=== PATIENT | male | born 1990 | race Caucasian/White ===

== ENCOUNTER 2016-07-31 02:30 | Inpatient (IN) | payer MEDICAID ==
[~2016-07-31] VITALS: Ht 175.3 cm; Wt 68.0 kg
[2016-07-31] MEDS ORDERED: STRIBILD TABLE1 EACH PO (02:36)
[2016-07-31] MEDS ORDERED: Metoclopramide 10mg/2ml Inj IVP ONE (02:45)
[2016-07-31] MEDS ORDERED: DiphenhydrAMINE 50mg/ml Inj IVP ONE (02:45)
[2016-07-31] MEDS ORDERED: Ketorolac 30mg Inj IV ONE (02:45)
[2016-07-31 02:54] LABS: BASOPHILS % (AUTO) 0.5 % (0.0-2.0); MEAN CORPUSCULAR HEMOGLOBIN 26.9 PG (27.0-31.0); MEAN CORPUSCULAR HGB CONC 34.2 G/DL (32.0-36.0); MEAN CORPUSCULAR VOLUME 79 FL (80-99); MEAN PLATELET VOLUME 7.5 FL (6.5-10.1); MONOCYTES % (AUTO) 6.8 % (1.0-10.0); NEUTROPHILS % (AUTO) 74.7 % (45.0-75.0); PLATELET COUNT 260 K/UL (150-450); RED BLOOD COUNT 4.52 M/UL (4.70-6.10); RED CELL DISTRIBUTION WIDTH 12.7 % (11.6-14.8); WHITE BLOOD COUNT 7.7 K/UL (4.8-10.8)
[2016-07-31] MEDS: cefTRIAXone 2 GM in NS 110 ML IV SCH ×2 (02:56→14:45)
[2016-07-31 03:00] VITALS: BP 112/60
[2016-07-31 03:10] LABS: INR 1.1 (0.9-1.1); PROTHROMBIN TIME 11.7 SEC (9.30-11.50)
[2016-07-31 03:11] LABS: ALANINE AMINOTRANSFERASE 16 U/L (3-41); ALBUMIN/GLOBULIN RATIO 0.7 (1.0-2.7); ANION GAP 14 (5-15); ASPARTATE AMINO TRANSFERASE 21 U/L (5-40); CALCIUM 8.6 mg/dL (8.6-10.2); CARBON DIOXIDE 25 mEQ/L (20-30); CHLORIDE 91 mEQ/L (98-107); CREATININE 0.8 mg/dL (0.7-1.2); GLOMERULAR FILTRATION RATE > 60 mL/min (>60); HEMOLYSIS 0; POTASSIUM 4.4 mEQ/L (3.4-4.9); SODIUM 130 mEQ/L (135-145); TOTAL PROTEIN 7.5 g/dL (6.6-8.7)
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
[2016-07-31 03:15] LABS: TROPONIN I < 0.30 ng/mL (<=0.30)
[2016-07-31 04:17] LABS: ERYTHROCYTE SEDIMENTATION RATE 80 MM/HR (0-15)
[2016-07-31 04:56] LABS: APPEARANCE,URINE CLEAR; KETONES,URINE NEGATIVE (NEGATIVE); LEUKOCYTE ESTERASE ,URINE NEGATIVE (NEGATIVE); NITRITE,URINE NEGATIVE (NEGATIVE); PH,URINE 8 (4.5-8.0); UROBILINOGEN,URINE NORMAL MG/DL (0.0-1.0)
[2016-07-31 04:59] LABS: PROTEIN,URINE NEGATIVE (NEGATIVE)
[2016-07-31] MEDS ORDERED: fentaNYL 100 mcg/2 mL IV ONE (05:45)
[2016-07-31 05:52] VITALS: BP 108/51
[2016-07-31 06:20] LABS: APPEARANCE,CSF CLEAR; COLOR,CSF COLORLESS
[2016-07-31 06:22] LABS: WHITE BLOOD CELL,CSF 40 /CU MM (0-5)
[2016-07-31 06:45] VITALS: BP 98/59
[2016-07-31 06:46] LABS: LYMPHOCYTES,CSF 65 %
[2016-07-31 06:52] LABS: GLUCOSE,CSF 42 mg/dL (50-80)
--- NOTE | 2016-07-31 09:11 | Diagnostic Imaging Report ---
Indication: Headache Technique: Contiguous 5 mm thick transaxial imaging of the head obtained in a Siemens Sensation [address] scanner. Soft tissue and bone windows generated. Total Dose length Product (DLP): [address] Dose Index Volume (CTDIvol): 70.38 mGy Comparison: none Findings: The size and configuration of the cortical sulci, basal cisterns, and ventricles are within normal limits for age. There is no mass effect, midline shift, or edema identified. There is no evidence of acute hemorrhage or abnormal intra-axial or extra-axial fluid collections. The bones and soft tissues are unremarkable. Impression: No mass effect, edema or acute bleed. The CT scanner at [facility] is accredited by the [employer] and the scans are performed using dose optimization techniques as appropriate to a performed exam including Automatic Exposure control.
[2016-07-31 12:15] VITALS: BP 104/71
[2016-07-31] MEDS ORDERED: Amikacin Rx to dose MISC PRN (18:15)
--- NOTE | 2016-07-31 18:22 | Consultation ---
History of Present Illness General Date patient seen: July 31, 2016 Chief Complaint: Headache Reason for Consultation: inpatient management Present Illness HPI 25 year old male with hx of HIV presents with headache for 3 days with fevers and chills. He's been vomiting and felt nauseated. He's also had some black stools. He had spinal tab, which showed wBC of 40 Allergies: Coded Allergies: Pecan (Verified Allergy, Unknown, 07/31/16) Paitent reports his throat closes up Uncoded Allergies: peanuts (Allergy, Unknown, 07/31/16) Paitent reports his throat closes up Medication History Scheduled Elvitegr/Cobicist/Emtric/Tenof (Stribild Tablet), 1 EACH PO DAILY, (Reported) Patient History Healthcare decision maker Resuscitation status Full Code Advanced Directive on File Review of Systems All Other Systems: negative except mentioned in HPI Physical Exam General Appearance: WD/WN Lines, tubes and drains: peripheral HEENT: normocephalic Neck: non-tender, normal alignment Respiratory/Chest: chest wall non-tender, lungs clear Breasts: no masses Cardiovascular/Chest: normal peripheral pulses Abdomen: normal bowel sounds, non tender Genitourinary/Rectal: normal genital exam Extremities: normal range of motion Skin Exam: normal pigmentation Last 24 Hour Vital Signs Date Time Temp Pulse Resp B/P Pulse Ox O2 Delivery O2 Flow Rate FiO2 07/31/16 12:15 98.2 86 22 104/71 97 Room Air 07/31/16 06:45 98.1 104 20 98/59 98 Room Air 07/31/16 06:00 98.4 82 18 108/51 100 Room Air 07/31/16 05:57 98.4 07/31/16 05:52 98.4 82 18 108/51 100 Room Air 07/31/16 03:00 100.8 90 18 112/60 100 Room Air 07/31/16 02:29 99.5 97 16 111/66 98 Room Air Intake and Output 07/30/16 07/31/16 19:00 07:00 # Voids 1 Laboratory Tests Test 07/31/16 02:40 07/31/16 04:50 07/31/16 05:30 07/31/16 15:30 White Blood Count 7.7 K/UL (4.8-10.8) Red Blood Count 4.52 M/UL (4.70-6.10) L Hemoglobin 12.2 G/DL (14.2-18.0) L Hematocrit 35.6 % (42.0-52.0) L Mean Corpuscular Volume 79 FL (80-99) L Mean Corpuscular Hemoglobin 26.9 PG (27.0-31.0) L Mean Corpuscular Hemoglobin Concent 34.2 G/DL (32.0-36.0) Red Cell Distribution Width 12.7 % (11.6-14.8) Platelet Count 260 K/UL (150-450) Mean Platelet Volume 7.5 FL (6.5-10.1) Neutrophils (%) (Auto) 74.7 % (45.0-75.0) Lymphocytes (%) (Auto) 18.0 % (20.0-45.0) L Monocytes (%) (Auto) 6.8 % (1.0-10.0) Eosinophils (%) (Auto) 0.0 % (0.0-3.0) Basophils (%) (Auto) 0.5 % (0.0-2.0) Erythrocyte Sedimentation Rate 80 MM/HR (0-15) H Prothrombin Time 11.7 SEC (9.30-11.50) H Prothromb Time International Ratio 1.1 (0.9-1.1) Activated Partial Thromboplast Time 30 SEC (23-33) Sodium Level 130 mEQ/L (135-145) L Potassium Level 4.4 mEQ/L (3.4-4.9) Chloride Level 91 mEQ/L (98-107) L Carbon Dioxide Level 25 mEQ/L (20-30) Anion Gap 14 (5-15) Blood Urea Nitrogen 11 mg/dL (7-23) Creatinine 0.8 mg/dL (0.7-1.2) Estimat Glomerular Filtration Rate > 60 mL/min (>60) Glucose Level 113 mg/dL (74-106) H Lactic Acid Level 1.30 mmol/L (0.66-2.22) Calcium Level 8.6 mg/dL (8.6-10.2) Total Bilirubin 0.3 mg/dL (0.0-1.2) Aspartate Amino Transf (AST/SGOT) 21 U/L (5-40) Alanine Aminotransferase (ALT/SGPT) 16 U/L (3-41) Alkaline Phosphatase 88 U/L (40-129) Total Creatine Kinase 37 U/L (38-174) L Troponin I < 0.30 ng/mL (<=0.30) Total Protein 7.5 g/dL (6.6-8.7) Albumin 3.1 g/dL (3.5-5.2) L Globulin 4.4 g/dL Albumin/Globulin Ratio 0.7 (1.0-2.7) L Urine Color Yellow Urine Appearance Clear Urine pH 8 (4.5-8.0) Urine Specific [place] 1.010 (1.005-1.035) Urine Protein Negative (NEGATIVE) Urine Glucose (UA) Negative (NEGATIVE) Urine Ketones Negative (NEGATIVE) Urine Occult Blood Negative (NEGATIVE) Urine Nitrite Negative (NEGATIVE) Urine Bilirubin Negative (NEGATIVE) Urine Urobilinogen Normal MG/DL (0.0-1.0) Urine Leukocyte Esterase Negative (NEGATIVE) Urine Opiates Screen Negative (NEGATIVE) Urine Barbiturates Screen Negative (NEGATIVE) Phencyclidine (PCP) Screen Negative (NEGATIVE) Urine Amphetamines Screen Positive (NEGATIVE) H Urine Benzodiazepines Screen Negative (NEGATIVE) Urine Cocaine Screen Negative (NEGATIVE) Urine Marijuana (THC) Screen Negative (NEGATIVE) CSF Appearance Clear CSF Color Colorless CSF WBC 40 /CU MM (0-5) *H CSF RBC 16 /CU MM CSF Neutrophils % 5 % CSF Lymphocytes % 65 % CSF Monocytes % 20 % CSF Crenated Cells 0 % CSF Glucose 42 mg/dL (50-80) L CSF Total Protein 90 mg/dL (15-45) H Cryptococcus Antigen Pending Microbiology Date/Time Source Procedure Growth Status 07/31/16 05:26 Cerebral Spinal Fluid Gram Stain - Final Resulted 07/31/16 05:26 Cerebral Spinal Fluid CSF Culture Pending Resulted 07/31/16 05:26 Cerebral Spinal Fluid Catrina Ink - Final Resulted Height (Feet): 5 Height (Inches): 9.00 Weight (Pounds): 150 Medications Current Medications Medications (Trade) Dose Ordered Sig/Genaro Route PRN Reason Start Time Stop Time Status Last Admin Dose Admin Acetaminophen (Tylenol) 650 mg Q4H PRN ORAL Mild Pain/Temp > 100.5 07/31/16 15:45 08/30/16 15:44 07/31/16 16:29 Amikacin Protocol 1 ea 1 ea DAILY PRN MISC Per rx protocol 07/31/16 18:15 08/30/16 18:14 UNV Heparin Sodium (Porcine) (Heparin 5000 units/ml) 5,000 units EVERY 12 HOURS SUBQ 07/31/16 21:00 08/30/16 20:59 Piperacillin Sod/ Tazobactam Sod/ Sodium Chloride (Zosyn/Sodium Chloride) 110 ml @ 27.5 mls/hr EVERY 6 HOURS IVPB 08/01/16 00:00 08/08/16 00:00 UNV Vancomycin HCl (Vanco rx to dose) 1 ea DAILY PRN MISC Per rx protocol 07/31/16 18:15 08/30/16 18:14 UNV Assessment/Plan Problem List: (1) Meningitis ICD Codes: G03.9 - Meningitis, unspecified SNOMED: 4735985 (2) HIV (human immunodeficiency virus infection) ICD Codes: Z21 - Asymptomatic human immunodeficiency virus [HIV] infection status SNOMED: 54299602 Assessment/Plan IV antibiotics check csf culture JADE FAROOQ July 31, 2016 18:22
[2016-07-31] MEDS: Morphine Sulfate 4mg/ml Inj IVP PRN (18:46)
--- NOTE | 2016-07-31 19:45 | History and Physical Report ---
DATE OF ADMISSION: 07/31/2016 TIME SEEN: 8 a.m. CONSULTANTS: 1. Dr. Goldsmith. 2. Manuelito Pastrana M.D. 3. Elaine Houston M.D. CHIEF COMPLAINT: Headache and fever. BRIEF HISTORY: This is a 25-year-old male, who comes in to [facility], diagnosed with the above, admitted to medical floor for further treatment. Currently sleeping in bed and refusing to answer questions. PAST MEDICAL HISTORY: HIV. PAST SURGICAL HISTORY: Unknown. MEDICATIONS: Includes ceftriaxone and IV fluids. ALLERGIES: Denies. SOCIAL HISTORY: The patient refuses to answer. REVIEW OF SYSTEMS: Unavailable. PHYSICAL EXAMINATION: GENERAL: Lethargic in bed, sleepy, and refuses to answer questions. VITAL SIGNS: Showed a temperature 98 degrees, pulse 104, respirations 20, and blood pressure 98/59. CARDIOVASCULAR: No murmur. LUNGS: Distant and clear. ABDOMEN: Bowel sounds positive. Nontender and nondistended. EXTREMITIES: No cyanosis, clubbing, or edema. NEUROLOGIC: The patient moves all extremities, but slightly weak. LABORATORY DATA: Hemoglobin 12.2. BMP is sodium 130, chloride 91, and glucose 113. Troponin less than 0.03. INR is 1.1. Urinalysis is negative. Urine tox is positive for amphetamines. ASSESSMENT: 1. Headache. 2. Fever. 3. Human immunodeficiency virus. 4. Anemia. PLAN: 1. Continue pre-medications and Tylenol p.r.n. 2. Antibiotics per Infectious Disease. 3. OT, PT, and dietary evaluation. 4. Discharge if cleared by team. 5. We will continue to follow this patient. Davis Pelletier D.O. DR: SINDY JOB#: [id number] CC:
[2016-07-31 20:00] VITALS: BP 97/62
[2016-07-31] MEDS ORDERED: Amikacin 1,000 MG in NS 110 ML IV SCH (20:00)
[2016-07-31] MEDS ORDERED: Vancomycin 1250mg/D5W 275ml IVPB ONE ×2 (21:00)
[2016-07-31] MEDS ORDERED: Vancomycin 1250mg/D5W 275ml IVPB SCH ×2 (21:00)
[2016-07-31] MEDS: Ampicillin 2 GM in NS 110 ML IVPB SCH (21:19)
[2016-07-31] MEDS: Heparin 5000 units/ml inj SUBQ SCH (21:20)
[2016-07-31] MEDS: cefTRIAXone 2 GM in D5W 110 ML IVPB SCH (23:50)
[2016-08-01] VITALS: BP 106/57
[2016-08-01] MEDS ORDERED: Piperacillin/Tazobactam 3.375 GM in NS 110 ML IVPB SCH ×2
[2016-08-01] MEDS: Ampicillin 2 GM in NS 110 ML IVPB SCH ×6 (00:32→20:26)
[2016-08-01 04:00] VITALS: BP 103/56
[2016-08-01] MEDS: Vancomycin 1gm/D5W 275ml IVPB SCH ×6 (04:44→21:00)
[2016-08-01 06:39] LABS: APPEARANCE,URINE CLEAR; KETONES,URINE NEGATIVE (NEGATIVE); LEUKOCYTE ESTERASE ,URINE NEGATIVE (NEGATIVE); NITRITE,URINE NEGATIVE (NEGATIVE); PH,URINE 7 (4.5-8.0); PROTEIN,URINE NEGATIVE (NEGATIVE); UROBILINOGEN,URINE NORMAL MG/DL (0.0-1.0)
[2016-08-01 06:54] LABS: BACTERIA,URINE OCCASIONAL /HPF; RBC,URINE 0-2 /HPF (0 - 0); SQUAMOUS EPITHELIAL CELL,UR OCCASIONAL /LPF (NONE/OCC); WBC,URINE 0-2 /HPF (0 - 0)
--- NOTE | 2016-08-01 07:43 | General Progress Note ---
Assessment/Plan Problem List: (1) Fever ICD Codes: R50.9 - Fever, unspecified SNOMED: 925772971 (2) Anemia ICD Codes: D64.9 - Anemia, unspecified SNOMED: 749458637 (3) HIV (human immunodeficiency virus infection) ICD Codes: Z21 - Asymptomatic human immunodeficiency virus [HIV] infection status SNOMED: 73616612 (4) Headache ICD Codes: R51 - Headache SNOMED: 81708230 Status: stable, progressing, tolerating diet Assessment/Plan ot pt diet abx cbc bmp am dc plan Subjective Constitutional: Reports: weakness Allergies: Coded Allergies: Pecan (Verified Allergy, Unknown, 07/31/16) Paitent reports his throat closes up Uncoded Allergies: peanuts (Allergy, Unknown, 07/31/16) Paitent reports his throat closes up All Systems: reviewed and negative except above Subjective sleepy calm Objective Last 24 Hour Vital Signs Date Time Temp Pulse Resp B/P Pulse Ox O2 Delivery O2 Flow Rate FiO2 08/01/16 05:58 97.7 08/01/16 04:00 98.2 91 20 103/56 96 Room Air 08/01/16 00:00 97.7 71 20 106/57 100 Room Air 07/31/16 20:00 100.0 86 17 97/62 96 Room Air 07/31/16 12:15 98.2 86 22 104/71 97 Room Air Intake and Output 07/31/16 08/01/16 19:00 07:00 Intake Total 720 ml 829.000 ml Output Total 1150 ml Balance 720 ml -321.000 ml Intake Oral 720 ml IV Total 829.000 ml Output Urine Total 1150 ml # Voids 6 # Bowel Movements 3 Laboratory Tests 07/31/16 15:30: Cryptococcus Antigen [Pending] 08/01/16 05:50: Urine Color Pale yellow, Urine Appearance Clear, Urine pH 7, Urine Specific [place] 1.005, Urine Protein Negative, Urine Glucose (UA) Negative, Urine Ketones Negative, Urine Occult Blood Negative, Urine Nitrite Negative, Urine Bilirubin Negative, Urine Urobilinogen Normal, Urine Leukocyte Esterase Negative , Urine RBC 0-2H, Urine WBC 0-2, Urine Squamous Epithelial Cells Occasional, Urine Bacteria Occasional Height (Feet): 5 Height (Inches): 9.00 Weight (Pounds): 150 General Appearance: lethargic EENT: normal ENT inspection Neck: normal alignment Cardiovascular: normal peripheral pulses, normal rate, regular rhythm Respiratory/Chest: chest wall non-tender, lungs clear, normal breath sounds Abdomen: normal bowel sounds, non tender, soft Extremities: normal inspection Edema: no edema noted Arm (L), no edema noted Arm (R), no edema noted Leg (L), no edema noted Leg (R), no edema noted Pedal (L), no edema noted Pedal (R), no edema noted Generalized Neurologic: responsive, motor weakness Skin: normal pigmentation, warm/dry BEAN REESE August 01, 2016 07:43
[2016-08-01 08:52] LABS: BASOPHILS % (AUTO) 1.1 % (0.0-2.0); EOSINOPHILS % (AUTO) 0.6 % (0.0-3.0); LYMPHOCYTES % (AUTO) 33.2 % (20.0-45.0); MEAN CORPUSCULAR HEMOGLOBIN 26.4 PG (27.0-31.0); MEAN CORPUSCULAR HGB CONC 33.1 G/DL (32.0-36.0); MEAN CORPUSCULAR VOLUME 80 FL (80-99); MEAN PLATELET VOLUME 7.9 FL (6.5-10.1); MONOCYTES % (AUTO) 13.1 % (1.0-10.0); PLATELET COUNT 221 K/UL (150-450); RED BLOOD COUNT 4.44 M/UL (4.70-6.10); RED CELL DISTRIBUTION WIDTH 12.8 % (11.6-14.8); WHITE BLOOD COUNT 3.7 K/UL (4.8-10.8)
[2016-08-01 09:04] LABS: CRP QUANT 3.4 mg/dL (< 0.5); MAGNESIUM 1.8 mg/dL (1.7-2.5); PHOSPHORUS 3.7 mg/dL (2.5-4.8)
[2016-08-01 09:08] LABS: ALANINE AMINOTRANSFERASE 14 U/L (3-41); ALBUMIN/GLOBULIN RATIO 0.7 (1.0-2.7); ANION GAP 13 (5-15); ASPARTATE AMINO TRANSFERASE 20 U/L (5-40); CALCIUM 8.9 mg/dL (8.6-10.2); CARBON DIOXIDE 28 mEQ/L (20-30); CHLORIDE 98 mEQ/L (98-107); CREATININE 0.8 mg/dL (0.7-1.2); GLOMERULAR FILTRATION RATE > 60 mL/min (>60); HEMOLYSIS 1; POTASSIUM 3.9 mEQ/L (3.4-4.9); SODIUM 139 mEQ/L (135-145); TOTAL PROTEIN 7.3 g/dL (6.6-8.7)
[2016-08-01] MEDS ORDERED: Amphotericin B Liposome 50mg inj IV SCH (09:30)
--- NOTE | 2016-08-01 09:56 | Infectious Diseases Prog Note ---
Assessment/Plan Problems: (1) Meningitis Assessment & Plan: with lymphocytosis on CSF, viral VS fungal VS TB, will order HSV on CSF, and coccidiomycosis titer , will add amphoterecine and acyclovir empirically for now, pending work, up. agree on vancomycin, ceftriaxon and ampicillin for bacterial coverage, pending CSF culture results. will stop amikacin (2) HIV (human immunodeficiency virus infection) Assessment & Plan: untreated, will order his viral load and CD4 counts for staging , patient needs counseling and referral to HIV provider to start ART as an outpatient , once discharged, all risk and benefits were explained to the patient and he understood. (3) Fever Assessment & Plan: due to the above, continue wide spectrum antimicrobials, pending further work up Subjective Allergies: Coded Allergies: Pecan (Verified Allergy, Unknown, 07/31/16) Triciat reports his throat closes up Uncoded Allergies: peanuts (Allergy, Unknown, 07/31/16) Racheltent reports his throat closes up Objective Vital Signs Last 24 Hour Vital Signs Date Time Temp Pulse Resp B/P Pulse Ox O2 Delivery O2 Flow Rate FiO2 08/01/16 05:58 97.7 08/01/16 04:00 98.2 91 20 103/56 96 Room Air 08/01/16 00:00 97.7 71 20 106/57 100 Room Air 07/31/16 20:00 100.0 86 17 97/62 96 Room Air 07/31/16 12:15 98.2 86 22 104/71 97 Room Air Height (Feet): 5 Height (Inches): 9.00 Weight (Pounds): 150 Microbiology Date/Time Source Procedure Growth Status 07/31/16 02:40 Blood Blood Culture - Preliminary NO GROWTH AFTER 24 HOURS Resulted 07/31/16 02:30 Blood Blood Culture - Preliminary NO GROWTH AFTER 24 HOURS Resulted 07/31/16 05:26 Cerebral Spinal Fluid Gram Stain - Final Resulted 07/31/16 05:26 Cerebral Spinal Fluid CSF Culture Pending Resulted 07/31/16 05:26 Cerebral Spinal Fluid Catrina Ink - Final Resulted Laboratory Tests Test 07/31/16 15:30 08/01/16 05:50 08/01/16 08:00 Cryptococcus Antigen Pending Urine Color Pale yellow Urine Appearance Clear Urine pH 7 (4.5-8.0) Urine Specific [place] 1.005 (1.005-1.035) Urine Protein Negative (NEGATIVE) Urine Glucose (UA) Negative (NEGATIVE) Urine Ketones Negative (NEGATIVE) Urine Occult Blood Negative (NEGATIVE) Urine Nitrite Negative (NEGATIVE) Urine Bilirubin Negative (NEGATIVE) Urine Urobilinogen Normal MG/DL (0.0-1.0) Urine Leukocyte Esterase Negative (NEGATIVE) Urine RBC 0-2 /HPF (0 - 0) H Urine WBC 0-2 /HPF (0 - 0) Urine Squamous Epithelial Cells Occasional /LPF Urine Bacteria Occasional /HPF (NONE) White Blood Count 3.7 K/UL (4.8-10.8) #L Red Blood Count 4.44 M/UL (4.70-6.10) L Hemoglobin 11.7 G/DL (14.2-18.0) L Hematocrit 35.4 % (42.0-52.0) L Mean Corpuscular Volume 80 FL (80-99) Mean Corpuscular Hemoglobin 26.4 PG (27.0-31.0) L Mean Corpuscular Hemoglobin Concent 33.1 G/DL (32.0-36.0) Red Cell Distribution Width 12.8 % (11.6-14.8) Platelet Count 221 K/UL (150-450) Mean Platelet Volume 7.9 FL (6.5-10.1) Neutrophils (%) (Auto) 52.0 % (45.0-75.0) Lymphocytes (%) (Auto) 33.2 % (20.0-45.0) Monocytes (%) (Auto) 13.1 % (1.0-10.0) H Eosinophils (%) (Auto) 0.6 % (0.0-3.0) Basophils (%) (Auto) 1.1 % (0.0-2.0) Erythrocyte Sedimentation Rate Pending Sodium Level 139 mEQ/L (135-145) Potassium Level 3.9 mEQ/L (3.4-4.9) Chloride Level 98 mEQ/L (98-107) Carbon Dioxide Level 28 mEQ/L (20-30) Anion Gap 13 (5-15) Blood Urea Nitrogen 6 mg/dL (7-23) L Creatinine 0.8 mg/dL (0.7-1.2) Estimat Glomerular Filtration Rate > 60 mL/min (>60) Glucose Level 85 mg/dL (74-106) Calcium Level 8.9 mg/dL (8.6-10.2) Phosphorus Level 3.7 mg/dL (2.5-4.8) Magnesium Level 1.8 mg/dL (1.7-2.5) Total Bilirubin < 0.2 mg/dL (0.0-1.2) Aspartate Amino Transf (AST/SGOT) 20 U/L (5-40) Alanine Aminotransferase (ALT/SGPT) 14 U/L (3-41) Alkaline Phosphatase 77 U/L (40-129) C-Reactive Protein, Quantitative 3.4 mg/dL (< 0.5) H Total Protein 7.3 g/dL (6.6-8.7) Albumin 3.1 g/dL (3.5-5.2) L Globulin 4.2 g/dL Albumin/Globulin Ratio 0.7 (1.0-2.7) L Random Amikacin Level < 0.8 ug/mL Current Medications Medications (Trade) Dose Ordered Sig/Genaro Route PRN Reason Start Time Stop Time Status Last Admin Dose Admin Acetaminophen (Tylenol) 650 mg Q4H PRN ORAL Mild Pain/Temp > 100.5 07/31/16 15:45 08/30/16 15:44 08/01/16 04:59 Acyclovir/Sodium Chloride (Zovirax/Sodium Chloride) 110 ml @ 110 mls/hr Q8HR IVPB 08/01/16 09:45 08/31/16 09:44 UNV Amphotericin B Liposome 350 mg 350 mg Q24H IV 08/01/16 09:30 08/06/16 09:29 UNV Ampicillin/Sodium Chloride (Ampicillin/ Sodium Chloride) 110 ml @ 220 mls/hr EVERY 4 HOURS IVPB 07/31/16 21:00 08/07/16 20:59 08/01/16 04:06 Ceftriaxone Sodium 2 gm/ Dextrose 110 ml @ 220 mls/hr Q12HR@1030,2230 IVPB 07/31/16 22:30 08/07/16 22:29 07/31/16 23:50 Heparin Sodium (Porcine) (Heparin 5000 units/ml) 5,000 units EVERY 12 HOURS SUBQ 07/31/16 21:00 08/30/16 20:59 07/31/16 21:20 Morphine Sulfate (Morphine Sulfate) 4 mg Q4H PRN IVP Severe Pain (Pain Scale 7-10) 07/31/16 18:30 08/07/16 18:29 07/31/16 18:46 Vancomycin HCl 1 ea 1 ea DAILY PRN MISC Per rx protocol 07/31/16 18:15 08/30/16 18:14 Vancomycin HCl 1 gm/Dextrose 275 ml @ 183.708 mls/hr Q8HR@0500,1300,2100 IVPB 08/01/16 05:00 08/06/16 04:59 08/01/16 04:44 Humberto Montemayor M.D. August 01, 2016 09:56
[2016-08-01] MEDS: Heparin 5000 units/ml inj SUBQ SCH ×2 (09:57→20:37)
[2016-08-01] MEDS: cefTRIAXone 2 GM in D5W 110 ML IVPB SCH ×2 (11:08→23:59)
[2016-08-01] MEDS: Acyclovir 700 MG in NS 110 ML IV SCH ×2 (12:01→18:48)
[2016-08-01 12:32] VITALS: BP 99/54
[2016-08-01] MEDS: AMPHOTERICIN B LIPOSOME IV SCH (13:58)
[2016-08-01] MEDS: D5W IV SCH (13:58)
[2016-08-01] MEDS: Morphine Sulfate 4mg/ml Inj IVP PRN ×2 (14:09→20:28)
[2016-08-01 16:26] VITALS: BP 100/52
[2016-08-01] MEDS ORDERED: NS 275ml ONE (17:34)
[2016-08-01] MEDS ORDERED: Tubing IV Secondary IV ONE (17:34)
--- NOTE | 2016-08-01 18:30 | Consultation ---
DATE OF CONSULTATION: 08/01/2016 INFECTIOUS DISEASE CONSULTATION CONSULTING PHYSICIAN: Humberto Montemayor M.D. REFERRING PHYSICIAN: Davis Pelletier D.O. REASON FOR CONSULTATION: Meningitis and HIV, recommendation for antimicrobial treatment and HIV care. HISTORY OF PRESENT ILLNESS: The patient is a 25-year-old male with history of HIV, was diagnosed three years ago, who has been on Stribild for his HIV treatment and run out of it for the last three months after he moved from [place] to [facility]. The patient presented with sudden onset of severe headache, blurry vision, neck stiffness, and vomiting, which started Monday morning after he woke up. He denied any recent travel or sick contact. The patient was having fever and chills. He vomited multiple times. There was no blood in his vomits. The patient denied any recent sexual activity. He denied any drug abuse or sharing needles. In the emergency room, he was found to be febrile with temperature of 99.5 and white count of 7.7. He underwent lumbar puncture with CSF fluid WBC was 40, mainly lymphocyte dominant. The patient was started on vancomycin, ceftriaxone, ampicillin, and amikacin by the admitting physician, and I was consulted for antibiotics treatment and further management. REVIEW OF SYSTEMS: Fourteen-point systems reviewed were all negative apart from the one I mentioned above in my H and P. PAST MEDICAL HISTORY: Significant for HIV. PAST SURGICAL HISTORY: Negative. SOCIAL HISTORY: The patient denied any tobacco or alcohol abuse, but he tested positive for amphetamine. FAMILY HISTORY: Not contributory. ALLERGIES: He has no known drug allergy. MEDICATIONS: The patient was started on vancomycin, ceftriaxone, amikacin, and ampicillin by the admitting physician for the rest of his medications. Please refer to MAR. LABORATORY DATA: Labs showed white count of 3.7, hemoglobin of 11.7, and platelet count of 221,000. Sedimentation rate of 86. BUN of 6 and creatinine of 0.8. AST of 20, ALT of 14, and alkaline phosphatase of 77. Urinalysis was negative for infection. Toxicology was positive for amphetamine. CSF analysis was clear, colorless, WBC of 40, red blood cells of 16, neutrophils of 5, lymphocytes of 65, monocytes of 20, and glucose of 42 with total protein of 90. VDRL and herpes on the CSF pending. Microbiology, blood culture x2 negative for 24 hours. CSF Catrina ink staining negative. IMAGING: Head CT scan showed no mass effect, edema, or acute bleed. PHYSICAL EXAMINATION: VITAL SIGNS: Temperature 97.9, pulse 68, respirations 22, blood pressure 99/54, and pulse oximetry 97% on room air. GENERAL: Young male, lying in bed, awake, alert, has photophobia for light, seems comfortable, not in distress. HEENT: Normocephalic and atraumatic. Unable to assess pupillary reaction since he has photophobia and refused to open his eyes. NECK: Stiff. No lymphadenopathy. Normal oral mucosa. No thrush or ulceration. CARDIOVASCULAR: Tachycardic. S1 and S2 normal. No gallop. No murmur. LUNGS: Clear bilaterally. No wheezing. No rhonchi. Normal breathing effort. ABDOMEN: Soft, nontender, and nondistended. Positive bowel sounds. No hepatosplenomegaly. No ascites. EXTREMITIES: No edema or cyanosis. SKIN: No rash. No ulceration. ASSESSMENT AND RECOMMENDATION: 1. Acute meningitis with lymphocyte dominance on cerebrospinal fluid analysis. Differential includes viral versus fungal versus TB. We will order herpes PCR on his CSF fluid and cocci with crypto antigen in the CSF and VDRL to rule out syphilis. We will add amphotericin for fungal coverage and acyclovir for viral coverage. Continue vancomycin, ceftriaxone, and ampicillin for bacterial coverage pending CSF culture result. We will stop amikacin at this point. Avoid nephrotoxicity. 2. Human immunodeficiency virus. The patient has been on Stribild, but off medication for three months with poor compliance. We will order his viral load and CD4 count for staging. The patient received counseling. He needs referral to HIV provider to establish his care once discharged from the hospital. We will continue his Stribild here while hospitalized, and the patient was advised to follow up with HIV provider once get discharged from the hospital. 3. Fever due to the above. Continue wide-spectrum antibiotic treatment pending further workup. 4. Drug abuse. The patient was counseled. We will screen for hepatitis. Humberto Montemayor M.D. DR: CARLY JOB#: [id number] CC:
[2016-08-01 20:01] VITALS: BP 100/60
[2016-08-01] MEDS: Vancomycin 1250mg in D5W 275ml IVPB SCH (22:07)
--- NOTE | 2016-08-01 22:40 | Pulmonology Progress Note ---
Assessment/Plan Problems: (1) Meningitis (2) HIV (human immunodeficiency virus infection) Assessment/Plan no cultures yet continue antibitics serology pending Subjective ROS Limited/Unobtainable: No Constitutional: Reports: no symptoms HEENT: Repors: no symptoms Respiratory: Reports: no symptoms Allergies: Coded Allergies: Pecan (Verified Allergy, Unknown, 07/31/16) Paitent reports his throat closes up Uncoded Allergies: peanuts (Allergy, Unknown, 07/31/16) Paitent reports his throat closes up Objective Last 24 Hour Vital Signs Date Time Temp Pulse Resp B/P Pulse Ox O2 Delivery O2 Flow Rate FiO2 08/01/16 20:01 99.5 80 17 100/60 98 Room Air 08/01/16 16:26 97.5 73 21 100/52 97 Room Air 08/01/16 12:32 97.9 60 22 99/54 97 Room Air 08/01/16 05:58 97.7 08/01/16 04:00 98.2 91 20 103/56 96 Room Air 08/01/16 00:00 97.7 71 20 106/57 100 Room Air Intake and Output 07/31/16 08/01/16 19:00 07:00 Intake Total 720 ml 829.000 ml Output Total 1150 ml Balance 720 ml -321.000 ml Intake Oral 720 ml IV Total 829.000 ml Output Urine Total 1150 ml # Voids 6 # Bowel Movements 3 General Appearance: WD/WN HEENT: normocephalic, atraumatic Respiratory/Chest: chest wall non-tender, lungs clear Cardiovascular: normal peripheral pulses, regular rhythm Abdomen: normal bowel sounds, soft, non tender Genitourinary: normal external genitalia Extremities: no clubbing Skin: no rash Microbiology Date/Time Source Procedure Growth Status 07/31/16 02:40 Blood Blood Culture - Preliminary NO GROWTH AFTER 24 HOURS Resulted 07/31/16 02:30 Blood Blood Culture - Preliminary NO GROWTH AFTER 24 HOURS Resulted 07/31/16 05:26 Cerebral Spinal Fluid Gram Stain - Final Resulted 07/31/16 05:26 Cerebral Spinal Fluid CSF Culture - Preliminary NO GROWTH AFTER 24 HOURS Resulted 07/31/16 05:26 Cerebral Spinal Fluid Catrina Ink - Final Resulted Laboratory Tests 08/01/16 05:50: Urine Color Pale yellow, Urine Appearance Clear, Urine pH 7, Urine Specific [place] 1.005, Urine Protein Negative, Urine Glucose (UA) Negative, Urine Ketones Negative, Urine Occult Blood Negative, Urine Nitrite Negative, Urine Bilirubin Negative, Urine Urobilinogen Normal, Urine Leukocyte Esterase Negative , Urine RBC 0-2H, Urine WBC 0-2, Urine Squamous Epithelial Cells Occasional, Urine Bacteria Occasional 08/01/16 08:00: White Blood Count 3.7#L, Red Blood Count 4.44L, Hemoglobin 11.7L, Hematocrit 35.4L, Mean Corpuscular Volume 80, Mean Corpuscular Hemoglobin 26.4L, Mean Corpuscular Hemoglobin Concent 33.1, Red Cell Distribution Width 12.8, Platelet Count 221, Mean Platelet Volume 7.9, Neutrophils (%) (Auto) 52.0, Lymphocytes (% ) (Auto) 33.2, Monocytes (%) (Auto) 13.1H, Eosinophils (%) (Auto) 0.6, Basophils (%) (Auto) 1.1, Erythrocyte Sedimentation Rate 86H, CSF VDRL [Pending] , CSF Herpes Simplex II DNA (PCR) [Pending], Sodium Level 139, Potassium Level 3.9, Chloride Level 98, Carbon Dioxide Level 28, Anion Gap 13, Blood Urea Nitrogen 6L, Creatinine 0.8, Estimat Glomerular Filtration Rate > 60, Glucose Level 85, Calcium Level 8.9, Phosphorus Level 3.7, Magnesium Level 1.8, Total Bilirubin < 0.2, Aspartate Amino Transf (AST/SGOT) 20, Alanine Aminotransferase (ALT/SGPT) 14, Alkaline Phosphatase 77, C-Reactive Protein, Quantitative 3.4H, Total Protein 7.3, Albumin 3.1L, Globulin 4.2, Albumin/Globulin Ratio 0.7L, Random Amikacin Level < 0.8, Herpes Simplex Virus I IgM Ab (IFA) [Pending], Herpes Simplex Virus II IgM Ab (IFA [Pending], Herpes Simplex Virus I DNA (PCR) [Pending] 08/01/16 18:00: Hepatitis A IgM Antibody [Pending], Hepatitis B Surface Antigen [Pending], Hepatitis B Core IgM Antibody [Pending], Hepatitis C Antibody [Pending] 08/01/16 20:20: Vancomycin Level Trough 11.7 Current Medications Medications (Trade) Dose Ordered Sig/Genaro Route PRN Reason Start Time Stop Time Status Last Admin Dose Admin Acetaminophen (Tylenol) 650 mg Q4H PRN ORAL Mild Pain/Temp > 100.5 07/31/16 15:45 08/30/16 15:44 08/01/16 04:59 Acyclovir 700 mg/ Sodium Chloride 110 ml @ 110 mls/hr Q8H IV 08/01/16 11:30 08/31/16 11:29 08/01/16 18:48 Amphotericin B Liposome 350 mg/ Dextrose 275 ml @ 137.5 mls/ hr Q24H IV 08/01/16 12:00 08/06/16 11:59 08/01/16 13:58 Ampicillin/Sodium Chloride (Ampicillin/ Sodium Chloride) 110 ml @ 220 mls/hr EVERY 4 HOURS IVPB 07/31/16 21:00 08/07/16 20:59 08/01/16 20:26 Ceftriaxone Sodium 2 gm/ Dextrose 110 ml @ 220 mls/hr Q12HR@1030,2230 IVPB 07/31/16 22:30 08/07/16 22:29 08/01/16 11:08 Heparin Sodium (Porcine) (Heparin 5000 units/ml) 5,000 units EVERY 12 HOURS SUBQ 07/31/16 21:00 08/30/16 20:59 07/31/16 21:20 Morphine Sulfate 4 mg 4 mg Q4H PRN IVP Severe Pain (Pain Scale 7-10) 07/31/16 18:30 08/07/16 18:29 08/01/16 20:28 Vancomycin HCl 1 ea 1 ea DAILY PRN MISC Per rx protocol 07/31/16 18:15 08/30/16 18:14 Vancomycin HCl/ Dextrose (Vancomycin/D5W) 275 ml @ 183.708 mls/hr Q8HR@0500,1700,2100 IVPB 08/01/16 22:00 08/06/16 21:59 08/01/16 22:07 JADE FAROOQ August 01, 2016 22:40
[2016-08-02] VITALS: BP 90/42
[2016-08-02] MEDS: Ampicillin 2 GM in NS 110 ML IVPB SCH ×6 (01:02→20:44)
[2016-08-02] MEDS: Acyclovir 700 MG in NS 110 ML IV SCH ×3 (03:13→18:51)
[2016-08-02 04:00] VITALS: BP 91/57
[2016-08-02] MEDS: Vancomycin 1250mg in D5W 275ml IVPB SCH (05:27)
--- NOTE | 2016-08-02 07:54 | Cardiology Report ---
APPROVED REPORT EKG Measurement Heart [id number] MI [id number] Normal sinus rhythm Normal ECG
[2016-08-02 08:00] VITALS: BP 110/58
[2016-08-02] MEDS ORDERED: DiphenhydrAMINE 50mg/ml Inj IVP PRN (08:30)
[2016-08-02] MEDS: Morphine Sulfate 4mg/ml Inj IVP PRN ×3 (08:50→20:49)
[2016-08-02] MEDS: Heparin 5000 units/ml inj SUBQ SCH ×2 (08:51→20:54)
--- NOTE | 2016-08-02 09:18 | Diagnostic Imaging Report ---
Indication: Chest Pain Comparison: None A single view chest radiograph was obtained. Findings: Cardiomediastinal appearance is within normal limits for age. Pulmonary vascularity is appropriate. The diaphragmatic contour is smooth and costophrenic angles are sharp. No pleural effusions are identified. The bones are unremarkable. Impression: No acute findings
[2016-08-02] MEDS: cefTRIAXone 2 GM in D5W 110 ML IVPB SCH ×2 (10:28→22:20)
[2016-08-02 10:45] LABS: BASOPHILS % (AUTO) 0.9 % (0.0-2.0); EOSINOPHILS % (AUTO) 1.4 % (0.0-3.0); LYMPHOCYTES % (AUTO) 30.9 % (20.0-45.0); MEAN CORPUSCULAR HEMOGLOBIN 25.7 PG (27.0-31.0); MEAN CORPUSCULAR HGB CONC 32.4 G/DL (32.0-36.0); MEAN CORPUSCULAR VOLUME 79 FL (80-99); MEAN PLATELET VOLUME 7.7 FL (6.5-10.1); MONOCYTES % (AUTO) 15.7 % (1.0-10.0); NEUTROPHILS % (AUTO) 51.1 % (45.0-75.0); PLATELET COUNT 255 K/UL (150-450); RED BLOOD COUNT 4.52 M/UL (4.70-6.10); RED CELL DISTRIBUTION WIDTH 12.6 % (11.6-14.8); WHITE BLOOD COUNT 3.9 K/UL (4.8-10.8)
[2016-08-02 11:21] LABS: ANION GAP 9 (5-15); CARBON DIOXIDE 31 mEQ/L (20-30); CHLORIDE 98 mEQ/L (98-107); CREATININE 0.7 mg/dL (0.7-1.2); GLOMERULAR FILTRATION RATE > 60 mL/min (>60); HEMOLYSIS 2; POTASSIUM 3.9 mEQ/L (3.4-4.9); SODIUM 138 mEQ/L (135-145)
--- NOTE | 2016-08-02 11:47 | Diagnostic Imaging Report ---
Indication: DYSPNEA Technique: One view of the chest Comparison: 07/31/2016 Findings: Less optimal inspiration currently. The lungs and pleural spaces are clear. Heart size is normal Impression: No acute process
[2016-08-02 12:00] VITALS: BP 109/45
--- NOTE | 2016-08-02 12:57 | General Progress Note ---
Assessment/Plan Problem List: (1) Fever ICD Codes: R50.9 - Fever, unspecified SNOMED: 673810744 (2) Anemia ICD Codes: D64.9 - Anemia, unspecified SNOMED: 553514867 (3) HIV (human immunodeficiency virus infection) ICD Codes: Z21 - Asymptomatic human immunodeficiency virus [HIV] infection status SNOMED: 26026560 (4) Headache ICD Codes: R51 - Headache SNOMED: 70834223 Status: stable, progressing, tolerating diet Assessment/Plan ot pt diet abx cbc bmp am dc plan Subjective Constitutional: Reports: weakness Allergies: Coded Allergies: Pecan (Verified Allergy, Unknown, 07/31/16) Paitent reports his throat closes up Uncoded Allergies: peanuts (Allergy, Unknown, 07/31/16) Paitent reports his throat closes up All Systems: reviewed and negative except above Subjective sleepy calm Objective Last 24 Hour Vital Signs Date Time Temp Pulse Resp B/P Pulse Ox O2 Delivery O2 Flow Rate FiO2 08/02/16 12:00 97.7 62 20 109/45 98 Room Air 08/02/16 08:00 98.2 70 20 110/58 97 Room Air 08/02/16 08:00 98.2 79 16 110/58 97 Room Air 08/02/16 04:00 98.1 65 18 91/57 96 Room Air 08/02/16 00:00 98.1 67 16 90/42 97 Room Air 08/01/16 20:01 99.5 80 17 100/60 98 Room Air 08/01/16 16:26 97.5 73 21 100/52 97 Room Air Intake and Output 08/01/16 08/02/16 19:00 07:00 Intake Total 2430.000 ml 1008.708 ml Output Total 1500 ml Balance 930.000 ml 1008.708 ml Intake Oral 1440 ml IV Total 990.000 ml 1008.708 ml Output Urine Total 1500 ml # Voids 5 3 Laboratory Tests 08/01/16 18:00: Hepatitis A IgM Antibody [Pending], Hepatitis B Surface Antigen [Pending], Hepatitis B Core IgM Antibody [Pending], Hepatitis C Antibody [Pending] 08/01/16 20:20: Vancomycin Level Trough 11.7 08/02/16 05:00: CSF Coccidioides Antibody [Pending] 08/02/16 10:25: White Blood Count 3.9L, Red Blood Count 4.52L, Hemoglobin 11.6L, Hematocrit 35.8L, Mean Corpuscular Volume 79L, Mean Corpuscular Hemoglobin 25.7L, Mean Corpuscular Hemoglobin Concent 32.4, Red Cell Distribution Width 12.6, Platelet Count 255, Mean Platelet Volume 7.7, Neutrophils (%) (Auto) 51.1, Lymphocytes (% ) (Auto) 30.9, Monocytes (%) (Auto) 15.7H, Eosinophils (%) (Auto) 1.4, Basophils (%) (Auto) 0.9, Lymphocytes [Pending], Sodium Level 138, Potassium Level 3.9, Chloride Level 98, Carbon Dioxide Level 31H, Anion Gap 9, Blood Urea Nitrogen 8, Creatinine 0.7, Estimat Glomerular Filtration Rate > 60, Glucose Level 101, Calcium Level 9.0, Percent CD3 Cells [Pending], Absolute CD3 Count [ Pending], Percent CD4 Cells [Pending], Absolute CD4 Count [Pending], T- Lymphocyte CD4/CD8 Ratio [Pending], Percent CD8 Cells [Pending], Absolute CD8 Count [Pending], Rapid Plasma Reagin [Pending], Blastomyces Ab Immunodiffusion [ Pending], Coccidioides Antibody (Comp Fix) [Pending], Histoplasma Mycelial Antibody [Pending], Histoplasma Antibody w Mycelial Ag [Pending], Histoplasma Antibody with Yeast Ag [Pending], HIV-1 RNA (PCR) log10 Value [Pending], HIV-1 RNA Ultraquantitative (PCR) [Pending], Toxoplasma IgG Antibody [Pending], Toxoplasma IgM Antibody [Pending] 08/02/16 11:00: TB Test (T-Spot) [Pending], TB Test Nil Control (T-Spot) [Pending], TB Test Panel A (T-Spot) [Pending], TB Test Panel B (T-Spot) [Pending], TB Test Positive Control (T-Spot) [Pending] Height (Feet): 5 Height (Inches): 9.00 Weight (Pounds): 150 General Appearance: lethargic EENT: normal ENT inspection Neck: normal alignment Cardiovascular: normal peripheral pulses, normal rate, regular rhythm Respiratory/Chest: chest wall non-tender, lungs clear, normal breath sounds Abdomen: normal bowel sounds, non tender, soft Extremities: normal range of motion, non-tender Edema: no edema noted Arm (L), no edema noted Arm (R), no edema noted Leg (L), no edema noted Leg (R), no edema noted Pedal (L), no edema noted Pedal (R), no edema noted Generalized Neurologic: motor weakness Skin: normal pigmentation, warm/dry BEAN REESE August 02, 2016 12:57
[2016-08-02] MEDS: D5W IV SCH (13:17)
[2016-08-02] MEDS: AMPHOTERICIN B LIPOSOME IV SCH (13:17)
--- NOTE | 2016-08-02 15:32 | Pulmonology Progress Note ---
Assessment/Plan Problems: (1) Meningitis (2) HIV (human immunodeficiency virus infection) Assessment/Plan improving csf cultures negative continue antibitics serology pending Subjective ROS Limited/Unobtainable: No Constitutional: Reports: no symptoms HEENT: Repors: no symptoms Respiratory: Reports: no symptoms Cardiovascular: Reports: no symptoms Allergies: Coded Allergies: Pecan (Verified Allergy, Unknown, 07/31/16) Paitent reports his throat closes up Uncoded Allergies: peanuts (Allergy, Unknown, 07/31/16) Paitent reports his throat closes up Objective Last 24 Hour Vital Signs Date Time Temp Pulse Resp B/P Pulse Ox O2 Delivery O2 Flow Rate FiO2 08/02/16 12:00 97.7 62 20 109/45 98 Room Air 08/02/16 08:00 98.2 70 20 110/58 97 Room Air 08/02/16 08:00 98.2 79 16 110/58 97 Room Air 08/02/16 04:00 98.1 65 18 91/57 96 Room Air 08/02/16 00:00 98.1 67 16 90/42 97 Room Air 08/01/16 20:01 99.5 80 17 100/60 98 Room Air 08/01/16 16:26 97.5 73 21 100/52 97 Room Air Intake and Output 08/01/16 08/02/16 19:00 07:00 Intake Total 2430.000 ml 1008.708 ml Output Total 1500 ml Balance 930.000 ml 1008.708 ml Intake Oral 1440 ml IV Total 990.000 ml 1008.708 ml Output Urine Total 1500 ml # Voids 5 3 General Appearance: WD/WN HEENT: normocephalic, atraumatic Respiratory/Chest: chest wall non-tender, lungs clear Cardiovascular: normal peripheral pulses, normal rate Genitourinary: normal external genitalia Skin: no rash Microbiology Date/Time Source Procedure Growth Status 07/31/16 02:40 Blood Blood Culture - Preliminary NO GROWTH AFTER 48 HOURS Resulted 07/31/16 02:30 Blood Blood Culture - Preliminary NO GROWTH AFTER 48 HOURS Resulted 07/31/16 05:26 Cerebral Spinal Fluid Gram Stain - Final Resulted 07/31/16 05:26 Cerebral Spinal Fluid CSF Culture - Preliminary NO GROWTH AFTER 48 HOURS Resulted 07/31/16 05:26 Cerebral Spinal Fluid Catrina Ink - Final Resulted 08/01/16 05:00 Sputum Gram Stain - Final Resulted 08/01/16 05:00 Sputum Sputum Culture Pending Resulted 08/01/16 05:00 Indwelling Cath Urine Culture - Preliminary NO GROWTH Resulted 07/31/16 05:34 Rectum VRE Culture - Final NO VANCOMYCIN RESISTANT ENTEROCOCCUS ... Complete Laboratory Tests 08/01/16 18:00: Hepatitis A IgM Antibody [Pending], Hepatitis B Surface Antigen [Pending], Hepatitis B Core IgM Antibody [Pending], Hepatitis C Antibody [Pending] 08/01/16 20:20: Vancomycin Level Trough 11.7 08/02/16 05:00: CSF Coccidioides Antibody [Pending] 08/02/16 10:25: White Blood Count 3.9L, Red Blood Count 4.52L, Hemoglobin 11.6L, Hematocrit 35.8L, Mean Corpuscular Volume 79L, Mean Corpuscular Hemoglobin 25.7L, Mean Corpuscular Hemoglobin Concent 32.4, Red Cell Distribution Width 12.6, Platelet Count 255, Mean Platelet Volume 7.7, Neutrophils (%) (Auto) 51.1, Lymphocytes (% ) (Auto) 30.9, Monocytes (%) (Auto) 15.7H, Eosinophils (%) (Auto) 1.4, Basophils (%) (Auto) 0.9, Lymphocytes [Pending], Sodium Level 138, Potassium Level 3.9, Chloride Level 98, Carbon Dioxide Level 31H, Anion Gap 9, Blood Urea Nitrogen 8, Creatinine 0.7, Estimat Glomerular Filtration Rate > 60, Glucose Level 101, Calcium Level 9.0, Percent CD3 Cells [Pending], Absolute CD3 Count [ Pending], Percent CD4 Cells [Pending], Absolute CD4 Count [Pending], T- Lymphocyte CD4/CD8 Ratio [Pending], Percent CD8 Cells [Pending], Absolute CD8 Count [Pending], Rapid Plasma Reagin [Pending], Blastomyces Ab Immunodiffusion [ Pending], Coccidioides Antibody (Comp Fix) [Pending], Histoplasma Mycelial Antibody [Pending], Histoplasma Antibody w Mycelial Ag [Pending], Histoplasma Antibody with Yeast Ag [Pending], HIV-1 RNA (PCR) log10 Value [Pending], HIV-1 RNA Ultraquantitative (PCR) [Pending], Toxoplasma IgG Antibody [Pending], Toxoplasma IgM Antibody [Pending] 08/02/16 11:00: TB Test (T-Spot) [Pending], TB Test Nil Control (T-Spot) [Pending], TB Test Panel A (T-Spot) [Pending], TB Test Panel B (T-Spot) [Pending], TB Test Positive Control (T-Spot) [Pending] Current Medications Medications (Trade) Dose Ordered Sig/Genaro Route PRN Reason Start Time Stop Time Status Last Admin Dose Admin Acetaminophen (Tylenol) 650 mg Q4H PRN ORAL Mild Pain/Temp > 100.5 07/31/16 15:45 08/30/16 15:44 08/01/16 04:59 Acyclovir 700 mg/ Sodium Chloride 110 ml @ 110 mls/hr Q8H IV 08/01/16 11:30 08/31/16 11:29 08/02/16 11:35 Amphotericin B Liposome 350 mg/ Dextrose 275 ml @ 137.5 mls/ hr Q24H IV 08/01/16 12:00 08/06/16 11:59 08/02/16 13:17 Ampicillin/Sodium Chloride (Ampicillin/ Sodium Chloride) 110 ml @ 220 mls/hr EVERY 4 HOURS IVPB 07/31/16 21:00 08/07/16 20:59 08/02/16 13:35 Ceftriaxone Sodium 2 gm/ Dextrose 110 ml @ 220 mls/hr Q12HR@1030,2230 IVPB 07/31/16 22:30 08/07/16 22:29 08/02/16 10:28 Diphenhydramine HCl (Benadryl) 25 mg Q6H PRN IVP Itching 08/02/16 08:30 09/01/16 08:29 Heparin Sodium (Porcine) (Heparin 5000 units/ml) 5,000 units EVERY 12 HOURS SUBQ 07/31/16 21:00 08/30/16 20:59 08/02/16 08:51 Morphine Sulfate 4 mg 4 mg Q4H PRN IVP Severe Pain (Pain Scale 7-10) 07/31/16 18:30 08/07/16 18:29 08/02/16 13:36 Patient Own Medication (Patient's Own Med) 1 ea DAILY ORAL 08/02/16 16:00 09/01/16 15:59 Vancomycin HCl 1 ea 1 ea DAILY PRN MISC Per rx protocol 07/31/16 18:15 08/30/16 18:14 Vancomycin HCl/ Dextrose (Vancomycin/D5W) 275 ml @ 183.708 mls/hr Q8HR@0500,1700,2100 IVPB 08/01/16 22:00 08/06/16 21:59 08/02/16 05:27 JADE FAROOQ August 02, 2016 15:32
[2016-08-02 16:00] VITALS: BP 97/50
[2016-08-02] MEDS ORDERED: Miralax 17gm pkt ORAL PRN (16:45)
[2016-08-02] MEDS ORDERED: NS 275ml ONE (17:13)
--- NOTE | 2016-08-02 18:21 | Infectious Diseases Prog Note ---
Assessment/Plan Problems: (1) Meningitis Assessment & Plan: with lymphocytosis on CSF, viral VS fungal VS TB, HSV on CSF, and coccidiomycosis titer are pending , continue amphotericin and acyclovir empirically for now, pending work up. continue vancomycin, ceftriaxon and ampicillin for bacterial coverage, pending CSF culture results. (2) HIV (human immunodeficiency virus infection) Assessment & Plan: was on stribild before but stopped taking it for the last three months. will restart it , await viral load and CD4 counts for staging , patient needs counseling and referral to HIV provider to start ART as an outpatient , once discharged, all risk and benefits were explained to the patient and he understood. screening for syphilis, toxo, and TB in process (3) Fever Assessment & Plan: improved, due to the above, continue wide spectrum antimicrobials, pending further work up Subjective Constitutional: Reports: anorexia, fatigue Respiratory: Reports: no symptoms Cardiovascular: Reports: no symptoms Gastrointestinal/Abdominal: Reports: nausea Genitourinary: Reports: no symptoms Neurologic: Reports: headache Skin: Reports: no symptoms Musculoskeletal: Reports: stiffness Allergies: Coded Allergies: Pecan (Verified Allergy, Unknown, 07/31/16) Paitent reports his throat closes up VANCOMYCIN (Verified Adverse Reaction, Intermediate, Hives, 08/02/16) patient developed hives, they went away after few hours after medication was stopped Uncoded Allergies: peanuts (Allergy, Unknown, 07/31/16) Paitent reports his throat closes up Objective Vital Signs Last 24 Hour Vital Signs Date Time Temp Pulse Resp B/P Pulse Ox O2 Delivery O2 Flow Rate FiO2 08/02/16 16:00 97.7 62 20 97/50 100 Room Air 08/02/16 12:00 97.7 62 20 109/45 98 Room Air 08/02/16 08:00 98.2 70 20 110/58 97 Room Air 08/02/16 08:00 98.2 79 16 110/58 97 Room Air 08/02/16 04:00 98.1 65 18 91/57 96 Room Air 08/02/16 00:00 98.1 67 16 90/42 97 Room Air 08/01/16 20:01 99.5 80 17 100/60 98 Room Air Height (Feet): 5 Height (Inches): 9.00 Weight (Pounds): 150 General Appearance: WD/WN, no acute distress HEENT: normocephalic, atraumatic, anicteric, mucous membranes moist, pharynx normal, no JVD Respiratory/Chest: chest wall non-tender, lungs clear, normal breath sounds, no respiratory distress, no accessory muscle use Cardiovascular: normal peripheral pulses, normal rate, regular rhythm, no gallop/murmur Abdomen: normal bowel sounds, soft, non tender, no organomegaly, non distended , no mass, no scars Extremities: no cyanosis, no clubbing Skin: no rash, no lesions, no ulcers Microbiology Date/Time Source Procedure Growth Status 07/31/16 02:40 Blood Blood Culture - Preliminary NO GROWTH AFTER 48 HOURS Resulted 07/31/16 02:30 Blood Blood Culture - Preliminary NO GROWTH AFTER 48 HOURS Resulted 07/31/16 05:26 Cerebral Spinal Fluid Gram Stain - Final Resulted 07/31/16 05:26 Cerebral Spinal Fluid CSF Culture - Preliminary NO GROWTH AFTER 48 HOURS Resulted 07/31/16 05:26 Cerebral Spinal Fluid Catrina Ink - Final Resulted 08/01/16 05:00 Sputum Gram Stain - Final Resulted 08/01/16 05:00 Sputum Sputum Culture Pending Resulted 08/01/16 05:00 Indwelling Cath Urine Culture - Preliminary NO GROWTH Resulted 07/31/16 05:34 Rectum VRE Culture - Final NO VANCOMYCIN RESISTANT ENTEROCOCCUS ... Complete Laboratory Tests Test 08/01/16 20:20 08/02/16 05:00 08/02/16 10:25 08/02/16 11:00 Vancomycin Level Trough 11.7 ug/mL (5.0-12.0) CSF Coccidioides Antibody Pending White Blood Count 3.9 K/UL (4.8-10.8) L Red Blood Count 4.52 M/UL (4.70-6.10) L Hemoglobin 11.6 G/DL (14.2-18.0) L Hematocrit 35.8 % (42.0-52.0) L Mean Corpuscular Volume 79 FL (80-99) L Mean Corpuscular Hemoglobin 25.7 PG (27.0-31.0) L Mean Corpuscular Hemoglobin Concent 32.4 G/DL (32.0-36.0) Red Cell Distribution Width 12.6 % (11.6-14.8) Platelet Count 255 K/UL (150-450) Mean Platelet Volume 7.7 FL (6.5-10.1) Neutrophils (%) (Auto) 51.1 % (45.0-75.0) Lymphocytes (%) (Auto) 30.9 % (20.0-45.0) Monocytes (%) (Auto) 15.7 % (1.0-10.0) H Eosinophils (%) (Auto) 1.4 % (0.0-3.0) Basophils (%) (Auto) 0.9 % (0.0-2.0) Lymphocytes Pending Sodium Level 138 mEQ/L (135-145) Potassium Level 3.9 mEQ/L (3.4-4.9) Chloride Level 98 mEQ/L (98-107) Carbon Dioxide Level 31 mEQ/L (20-30) H Anion Gap 9 (5-15) Blood Urea Nitrogen 8 mg/dL (7-23) Creatinine 0.7 mg/dL (0.7-1.2) Estimat Glomerular Filtration Rate > 60 mL/min (>60) Glucose Level 101 mg/dL (74-106) Calcium Level 9.0 mg/dL (8.6-10.2) Percent CD3 Cells Pending Absolute CD3 Count Pending Percent CD4 Cells Pending Absolute CD4 Count Pending T-Lymphocyte CD4/CD8 Ratio Pending Percent CD8 Cells Pending Absolute CD8 Count Pending Rapid Plasma Reagin Pending Blastomyces Ab Immunodiffusion Pending Coccidioides Antibody (Comp Fix) Pending Histoplasma Mycelial Antibody Pending Histoplasma Antibody w Mycelial Ag Pending Histoplasma Antibody with Yeast Ag Pending HIV-1 RNA (PCR) log10 Value Pending HIV-1 RNA Ultraquantitative (PCR) Pending Toxoplasma IgG Antibody Pending Toxoplasma IgM Antibody Pending TB Test (T-Spot) Pending TB Test Nil Control (T-Spot) Pending TB Test Panel A (T-Spot) Pending TB Test Panel B (T-Spot) Pending TB Test Positive Control (T-Spot) Pending Current Medications Medications (Trade) Dose Ordered Sig/Genaro Route PRN Reason Start Time Stop Time Status Last Admin Dose Admin Acetaminophen 650 mg 650 mg Q4H PRN ORAL Mild Pain/Temp > 100.5 07/31/16 15:45 08/30/16 15:44 08/01/16 04:59 Acyclovir 700 mg/ Sodium Chloride 110 ml @ 110 mls/hr Q8H IV 08/01/16 11:30 08/31/16 11:29 08/02/16 11:35 Amphotericin B Liposome/Dextrose (Ambisome/D5W) 275 ml @ 137.5 mls/ hr Q24H IV 08/01/16 12:00 08/06/16 11:59 08/02/16 13:17 Ampicillin/Sodium Chloride (Ampicillin/ Sodium Chloride) 110 ml @ 220 mls/hr EVERY 4 HOURS IVPB 07/31/16 21:00 08/07/16 20:59 08/02/16 16:27 Ceftriaxone Sodium 2 gm/ Dextrose 110 ml @ 220 mls/hr Q12HR@1030,2230 IVPB 07/31/16 22:30 08/07/16 22:29 08/02/16 10:28 Diphenhydramine HCl (Benadryl) 25 mg Q6H PRN IVP Itching 08/02/16 08:30 09/01/16 08:29 Heparin Sodium (Porcine) (Heparin 5000 units/ml) 5,000 units EVERY 12 HOURS SUBQ 07/31/16 21:00 08/30/16 20:59 08/02/16 08:51 Morphine Sulfate 4 mg 4 mg Q4H PRN IVP Severe Pain (Pain Scale 7-10) 07/31/16 18:30 08/07/16 18:29 08/02/16 13:36 Patient Own Medication (Patient's Own Med) 1 ea DAILY ORAL 08/02/16 16:00 09/01/16 15:59 08/02/16 16:27 Polyethylene Glycol (Miralax) 17 gm DAILYPRN PRN ORAL Constipation 08/02/16 16:45 09/01/16 16:44 Humberto Montemayor M.D. August 02, 2016 18:21
[2016-08-02 20:00] VITALS: BP 103/52
[2016-08-03] VITALS: BP 97/53
[2016-08-03] MEDS: Ampicillin 2 GM in NS 110 ML IVPB SCH ×6 (00:47→21:37)
[2016-08-03] MEDS: Acyclovir 700 MG in NS 110 ML IV SCH ×3 (03:17→19:42)
[2016-08-03 08:00] VITALS: BP 102/50
[2016-08-03] MEDS: Heparin 5000 units/ml inj SUBQ SCH ×2 (08:39→21:00)
[2016-08-03] MEDS: cefTRIAXone 2 GM in D5W 110 ML IVPB SCH (10:18)
[2016-08-03 10:32] LABS: BASOPHILS % (AUTO) 0.8 % (0.0-2.0); EOSINOPHILS % (AUTO) 1.3 % (0.0-3.0); LYMPHOCYTES % (AUTO) 34.9 % (20.0-45.0); MEAN CORPUSCULAR HEMOGLOBIN 26.4 PG (27.0-31.0); MEAN CORPUSCULAR HGB CONC 33.1 G/DL (32.0-36.0); MEAN CORPUSCULAR VOLUME 80 FL (80-99); MEAN PLATELET VOLUME 7.7 FL (6.5-10.1); MONOCYTES % (AUTO) 14.3 % (1.0-10.0); NEUTROPHILS % (AUTO) 48.7 % (45.0-75.0); PLATELET COUNT 261 K/UL (150-450); RED BLOOD COUNT 4.51 M/UL (4.70-6.10); RED CELL DISTRIBUTION WIDTH 12.3 % (11.6-14.8); WHITE BLOOD COUNT 3.6 K/UL (4.8-10.8)
[2016-08-03 10:59] LABS: ANION GAP 10 (5-15); CALCIUM 8.5 mg/dL (8.6-10.2); CARBON DIOXIDE 29 mEQ/L (20-30); CHLORIDE 103 mEQ/L (98-107); CREATININE 0.8 mg/dL (0.7-1.2); GLOMERULAR FILTRATION RATE > 60 mL/min (>60); HEMOLYSIS 1; POTASSIUM 4.2 mEQ/L (3.4-4.9); SODIUM 142 mEQ/L (135-145)
[2016-08-03 11:24] LABS: CSF COMMENT PATHOLOGIST COMMENT
[2016-08-03 12:00] VITALS: BP 132/74
[2016-08-03] MEDS: D5W IV SCH (12:45)
[2016-08-03] MEDS: AMPHOTERICIN B LIPOSOME IV SCH (12:45)
--- NOTE | 2016-08-03 13:59 | General Progress Note ---
Assessment/Plan Problem List: (1) Fever ICD Codes: R50.9 - Fever, unspecified SNOMED: 088165154 (2) Anemia ICD Codes: D64.9 - Anemia, unspecified SNOMED: 416538916 (3) HIV (human immunodeficiency virus infection) ICD Codes: Z21 - Asymptomatic human immunodeficiency virus [HIV] infection status SNOMED: 81282385 (4) Headache ICD Codes: R51 - Headache SNOMED: 68378407 Status: stable, progressing, tolerating diet Assessment/Plan ot pt diet abx cbc bmp am dc plan Subjective Constitutional: Reports: weakness Allergies: Coded Allergies: Pecan (Verified Allergy, Unknown, 07/31/16) Paitent reports his throat closes up VANCOMYCIN (Verified Adverse Reaction, Intermediate, Hives, 08/02/16) patient developed hives, they went away after few hours after medication was stopped Uncoded Allergies: peanuts (Allergy, Unknown, 07/31/16) Triciat reports his throat closes up All Systems: reviewed and negative except above Subjective sleepy calm Objective Last 24 Hour Vital Signs Date Time Temp Pulse Resp B/P Pulse Ox O2 Delivery O2 Flow Rate FiO2 08/03/16 12:00 98.1 68 18 132/74 97 Room Air 08/03/16 08:00 97.5 64 18 102/50 97 Room Air 08/03/16 04:00 97.5 61 18 98 Room Air 08/03/16 00:00 96.6 62 18 97/53 98 Room Air 08/02/16 20:00 97.2 67 18 103/52 94 Room Air 08/02/16 16:00 97.7 62 20 97/50 100 Room Air Intake and Output 08/02/16 08/03/16 19:00 07:00 Intake Total 1125.0 ml 660 ml Balance 1125.0 ml 660 ml Intake Oral 300 ml IV Total 825.0 ml 660 ml # Voids 4 2 Laboratory Tests 08/03/16 09:50: White Blood Count 3.6L, Red Blood Count 4.51L, Hemoglobin 11.9L, Hematocrit 36.0L, Mean Corpuscular Volume 80, Mean Corpuscular Hemoglobin 26.4L, Mean Corpuscular Hemoglobin Concent 33.1, Red Cell Distribution Width 12.3, Platelet Count 261, Mean Platelet Volume 7.7, Neutrophils (%) (Auto) 48.7, Lymphocytes (% ) (Auto) 34.9, Monocytes (%) (Auto) 14.3H, Eosinophils (%) (Auto) 1.3, Basophils (%) (Auto) 0.8, Sodium Level 142, Potassium Level 4.2, Chloride Level 103, Carbon Dioxide Level 29, Anion Gap 10, Blood Urea Nitrogen 10, Creatinine 0.8, Estimat Glomerular Filtration Rate > 60, Glucose Level 105, Calcium Level 8.5L Height (Feet): 5 Height (Inches): 9.00 Weight (Pounds): 150 General Appearance: lethargic EENT: normal ENT inspection Neck: normal alignment Cardiovascular: normal peripheral pulses, normal rate, regular rhythm Respiratory/Chest: chest wall non-tender, lungs clear, normal breath sounds Abdomen: normal bowel sounds, non tender, soft Extremities: normal inspection Edema: no edema noted Arm (L), no edema noted Arm (R), no edema noted Leg (L), no edema noted Leg (R), no edema noted Pedal (L), no edema noted Pedal (R), no edema noted Generalized Neurologic: motor weakness Skin: normal pigmentation, warm/dry BEAN REESE August 03, 2016 13:59
--- NOTE | 2016-08-03 15:17 | Pulmonology Progress Note ---
Assessment/Plan Problems: (1) Meningitis (2) HIV (human immunodeficiency virus infection) Assessment/Plan improving csf cultures negative continue antibitics as per Id recommendations serology pending Subjective ROS Limited/Unobtainable: No Constitutional: Reports: no symptoms HEENT: Repors: no symptoms Allergies: Coded Allergies: Pecan (Verified Allergy, Unknown, 07/31/16) Taylor reports his throat closes up VANCOMYCIN (Verified Adverse Reaction, Intermediate, Hives, 08/02/16) patient developed hives, they went away after few hours after medication was stopped Uncoded Allergies: peanuts (Allergy, Unknown, 07/31/16) Taylor reports his throat closes up Objective Last 24 Hour Vital Signs Date Time Temp Pulse Resp B/P Pulse Ox O2 Delivery O2 Flow Rate FiO2 08/03/16 12:00 98.1 68 18 132/74 97 Room Air 08/03/16 08:00 97.5 64 18 102/50 97 Room Air 08/03/16 04:00 97.5 61 18 98 Room Air 08/03/16 00:00 96.6 62 18 97/53 98 Room Air 08/02/16 20:00 97.2 67 18 103/52 94 Room Air 08/02/16 16:00 97.7 62 20 97/50 100 Room Air Intake and Output 08/02/16 08/03/16 19:00 07:00 Intake Total 1125.0 ml 660 ml Balance 1125.0 ml 660 ml Intake Oral 300 ml IV Total 825.0 ml 660 ml # Voids 4 2 General Appearance: WD/WN HEENT: normocephalic Respiratory/Chest: chest wall non-tender, lungs clear Cardiovascular: normal peripheral pulses, normal rate Abdomen: normal bowel sounds, soft, non tender Genitourinary: normal external genitalia 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 Lymphatic: no neck adenopathy Microbiology Date/Time Source Procedure Growth Status 08/01/16 05:00 Sputum Gram Stain - Final Complete 08/01/16 05:00 Sputum Sputum Culture - Final NORMAL UPPER RESPIRATORY XAVIER PRESENT Complete 08/01/16 05:00 Indwelling Cath Urine Culture - Preliminary NO GROWTH AFTER 24 HOURS Resulted Laboratory Tests 08/03/16 09:50: White Blood Count 3.6L, Red Blood Count 4.51L, Hemoglobin 11.9L, Hematocrit 36.0L, Mean Corpuscular Volume 80, Mean Corpuscular Hemoglobin 26.4L, Mean Corpuscular Hemoglobin Concent 33.1, Red Cell Distribution Width 12.3, Platelet Count 261, Mean Platelet Volume 7.7, Neutrophils (%) (Auto) 48.7, Lymphocytes (% ) (Auto) 34.9, Monocytes (%) (Auto) 14.3H, Eosinophils (%) (Auto) 1.3, Basophils (%) (Auto) 0.8, Sodium Level 142, Potassium Level 4.2, Chloride Level 103, Carbon Dioxide Level 29, Anion Gap 10, Blood Urea Nitrogen 10, Creatinine 0.8, Estimat Glomerular Filtration Rate > 60, Glucose Level 105, Calcium Level 8.5L Current Medications Medications (Trade) Dose Ordered Sig/Genaro Route PRN Reason Start Time Stop Time Status Last Admin Dose Admin Acetaminophen 650 mg 650 mg Q4H PRN ORAL Mild Pain/Temp > 100.5 07/31/16 15:45 08/30/16 15:44 08/01/16 04:59 Acyclovir 700 mg/ Sodium Chloride 110 ml @ 110 mls/hr Q8H IV 08/01/16 11:30 08/31/16 11:29 08/03/16 11:43 Amphotericin B Liposome/Dextrose (Ambisome/D5W) 275 ml @ 137.5 mls/ hr Q24H IV 08/01/16 12:00 08/06/16 11:59 08/03/16 12:45 Ampicillin/Sodium Chloride (Ampicillin/ Sodium Chloride) 110 ml @ 220 mls/hr EVERY 4 HOURS IVPB 07/31/16 21:00 08/07/16 20:59 08/03/16 13:30 Ceftriaxone Sodium 2 gm/ Dextrose 110 ml @ 220 mls/hr Q12HR@1030,2230 IVPB 07/31/16 22:30 08/07/16 22:29 08/03/16 10:18 Diphenhydramine HCl (Benadryl) 25 mg Q6H PRN IVP Itching 08/02/16 08:30 09/01/16 08:29 Heparin Sodium (Porcine) (Heparin 5000 units/ml) 5,000 units EVERY 12 HOURS SUBQ 07/31/16 21:00 08/30/16 20:59 08/03/16 08:39 Morphine Sulfate 4 mg 4 mg Q4H PRN IVP Severe Pain (Pain Scale 7-10) 07/31/16 18:30 08/07/16 18:29 08/02/16 20:49 Ondansetron HCl (Zofran) 4 mg Q4H PRN IVP Nausea & Vomiting 08/03/16 07:00 09/02/16 06:59 08/03/16 08:31 Patient Own Medication (Patient's Own Med) 1 ea DAILY ORAL 08/02/16 16:00 09/01/16 15:59 08/02/16 16:27 Polyethylene Glycol (Miralax) 17 gm DAILYPRN PRN ORAL Constipation 08/02/16 16:45 09/01/16 16:44 JADE FAROOQ August 03, 2016 15:17
--- NOTE | 2016-08-03 15:29 | Infectious Diseases Prog Note ---
Assessment/Plan Problems: (1) Meningitis Assessment & Plan: with lymphocytosis on CSF, viral VS fungal VS TB, HSV on CSF, and coccidiomycosis titer are pending , continue amphotericin and acyclovir empirically for now, pending work up. will stop vancomycin, and ceftriaxon , for now since CSF culture and gram stain is negative . will continue ampicillin for bacterial coverage, pending CSF culture results. (2) HIV (human immunodeficiency virus infection) Assessment & Plan: was on stribild before but stopped taking it for the last three months. he refused to restart it here thinking it will exacerbate his infection. await viral load and CD4 counts for staging , patient needs counseling and referral to HIV provider to start ART as an outpatient , once discharged, all risk and benefits were explained to the patient and he understood. screening for syphilis, toxo, and TB in process (3) Fever Assessment & Plan: improved, due to the above, continue wide spectrum antimicrobials, pending further work up Subjective Constitutional: Reports: anorexia, fatigue HEENT: Reports: no symptoms Respiratory: Reports: no symptoms Breasts: Reports: no symptoms Cardiovascular: Reports: no symptoms Gastrointestinal/Abdominal: Reports: no symptoms Genitourinary: Reports: no symptoms Neurologic: Reports: headache Psychiatric: Reports: anxiety Skin: Reports: no symptoms Endocrine: Reports: no symptoms Allergies: Coded Allergies: Pecan (Verified Allergy, Unknown, 07/31/16) Taylor reports his throat closes up VANCOMYCIN (Verified Adverse Reaction, Intermediate, Hives, 08/02/16) patient developed hives, they went away after few hours after medication was stopped Uncoded Allergies: peanuts (Allergy, Unknown, 07/31/16) Taylor reports his throat closes up Objective Vital Signs Last 24 Hour Vital Signs Date Time Temp Pulse Resp B/P Pulse Ox O2 Delivery O2 Flow Rate FiO2 08/03/16 12:00 98.1 68 18 132/74 97 Room Air 08/03/16 08:00 97.5 64 18 102/50 97 Room Air 08/03/16 04:00 97.5 61 18 98 Room Air 08/03/16 00:00 96.6 62 18 97/53 98 Room Air 08/02/16 20:00 97.2 67 18 103/52 94 Room Air 08/02/16 16:00 97.7 62 20 97/50 100 Room Air Height (Feet): 5 Height (Inches): 9.00 Weight (Pounds): 150 General Appearance: WD/WN, no acute distress HEENT: normocephalic, atraumatic, anicteric, mucous membranes moist Respiratory/Chest: chest wall non-tender, lungs clear, normal breath sounds, no respiratory distress, no accessory muscle use Cardiovascular: normal peripheral pulses, normal rate, regular rhythm, no gallop/murmur Abdomen: normal bowel sounds, soft, non tender, no organomegaly, non distended , no mass, no scars Extremities: no cyanosis, no clubbing Skin: no rash, no lesions Microbiology Date/Time Source Procedure Growth Status 08/01/16 05:00 Sputum Gram Stain - Final Complete 08/01/16 05:00 Sputum Sputum Culture - Final NORMAL UPPER RESPIRATORY XAVIER PRESENT Complete 08/01/16 05:00 Indwelling Cath Urine Culture - Preliminary NO GROWTH AFTER 24 HOURS Resulted Laboratory Tests Test 08/03/16 09:50 White Blood Count 3.6 K/UL (4.8-10.8) L Red Blood Count 4.51 M/UL (4.70-6.10) L Hemoglobin 11.9 G/DL (14.2-18.0) L Hematocrit 36.0 % (42.0-52.0) L Mean Corpuscular Volume 80 FL (80-99) Mean Corpuscular Hemoglobin 26.4 PG (27.0-31.0) L Mean Corpuscular Hemoglobin Concent 33.1 G/DL (32.0-36.0) Red Cell Distribution Width 12.3 % (11.6-14.8) Platelet Count 261 K/UL (150-450) Mean Platelet Volume 7.7 FL (6.5-10.1) Neutrophils (%) (Auto) 48.7 % (45.0-75.0) Lymphocytes (%) (Auto) 34.9 % (20.0-45.0) Monocytes (%) (Auto) 14.3 % (1.0-10.0) H Eosinophils (%) (Auto) 1.3 % (0.0-3.0) Basophils (%) (Auto) 0.8 % (0.0-2.0) Sodium Level 142 mEQ/L (135-145) Potassium Level 4.2 mEQ/L (3.4-4.9) Chloride Level 103 mEQ/L (98-107) Carbon Dioxide Level 29 mEQ/L (20-30) Anion Gap 10 (5-15) Blood Urea Nitrogen 10 mg/dL (7-23) Creatinine 0.8 mg/dL (0.7-1.2) Estimat Glomerular Filtration Rate > 60 mL/min (>60) Glucose Level 105 mg/dL (74-106) Calcium Level 8.5 mg/dL (8.6-10.2) L Current Medications Medications (Trade) Dose Ordered Sig/Genaro Route PRN Reason Start Time Stop Time Status Last Admin Dose Admin Acetaminophen 650 mg 650 mg Q4H PRN ORAL Mild Pain/Temp > 100.5 07/31/16 15:45 08/30/16 15:44 08/01/16 04:59 Acyclovir 700 mg/ Sodium Chloride 110 ml @ 110 mls/hr Q8H IV 08/01/16 11:30 08/31/16 11:29 08/03/16 11:43 Amphotericin B Liposome/Dextrose (Ambisome/D5W) 275 ml @ 137.5 mls/ hr Q24H IV 08/01/16 12:00 08/06/16 11:59 08/03/16 12:45 Ampicillin/Sodium Chloride (Ampicillin/ Sodium Chloride) 110 ml @ 220 mls/hr EVERY 4 HOURS IVPB 07/31/16 21:00 08/07/16 20:59 08/03/16 13:30 Ceftriaxone Sodium 2 gm/ Dextrose 110 ml @ 220 mls/hr Q12HR@1030,2230 IVPB 07/31/16 22:30 08/07/16 22:29 08/03/16 10:18 Diphenhydramine HCl (Benadryl) 25 mg Q6H PRN IVP Itching 08/02/16 08:30 09/01/16 08:29 Heparin Sodium (Porcine) (Heparin 5000 units/ml) 5,000 units EVERY 12 HOURS SUBQ 07/31/16 21:00 08/30/16 20:59 08/03/16 08:39 Morphine Sulfate 4 mg 4 mg Q4H PRN IVP Severe Pain (Pain Scale 7-10) 07/31/16 18:30 08/07/16 18:29 08/02/16 20:49 Ondansetron HCl (Zofran) 4 mg Q4H PRN IVP Nausea & Vomiting 08/03/16 07:00 09/02/16 06:59 08/03/16 08:31 Patient Own Medication (Patient's Own Med) 1 ea DAILY ORAL 08/02/16 16:00 09/01/16 15:59 08/02/16 16:27 Polyethylene Glycol (Miralax) 17 gm DAILYPRN PRN ORAL Constipation 08/02/16 16:45 09/01/16 16:44 Humberto Montemayor M.D. August 03, 2016 15:28
[2016-08-03 16:00] VITALS: BP 127/62
[2016-08-03 20:00] VITALS: BP 120/60
[2016-08-03] MEDS: Morphine Sulfate 4mg/ml Inj IVP PRN (23:41)
[2016-08-04 01:00] VITALS: BP 104/62
[2016-08-04] MEDS: Ampicillin 2 GM in NS 110 ML IVPB SCH ×4 (01:13→14:28)
[2016-08-04] MEDS: Acyclovir 700 MG in NS 110 ML IV SCH ×3 (03:44→19:37)
[2016-08-04 04:00] VITALS: BP 110/65
[2016-08-04 08:00] VITALS: BP 98/50
[2016-08-04] MEDS: Heparin 5000 units/ml inj SUBQ SCH ×2 (09:00→20:56)
[2016-08-04 12:00] VITALS: BP 121/50
[2016-08-04] MEDS: D5W IV SCH (12:30)
[2016-08-04] MEDS: AMPHOTERICIN B LIPOSOME IV SCH (12:30)
--- NOTE | 2016-08-04 13:30 | General Progress Note ---
Assessment/Plan Problem List: (1) Fever ICD Codes: R50.9 - Fever, unspecified SNOMED: 148006671 (2) Anemia ICD Codes: D64.9 - Anemia, unspecified SNOMED: 006705356 (3) HIV (human immunodeficiency virus infection) ICD Codes: Z21 - Asymptomatic human immunodeficiency virus [HIV] infection status SNOMED: 37096265 (4) Headache ICD Codes: R51 - Headache SNOMED: 97417700 Status: stable, progressing, tolerating diet Assessment/Plan ot pt diet abx cbc bmp am dc plan Subjective Constitutional: Reports: weakness Allergies: Coded Allergies: Pecan (Verified Allergy, Unknown, 07/31/16) Paitent reports his throat closes up VANCOMYCIN (Verified Adverse Reaction, Intermediate, Hives, 08/02/16) patient developed hives, they went away after few hours after medication was stopped Uncoded Allergies: peanuts (Allergy, Unknown, 07/31/16) Paitent reports his throat closes up All Systems: reviewed and negative except above Subjective sleepy calm Objective Last 24 Hour Vital Signs Date Time Temp Pulse Resp B/P Pulse Ox O2 Delivery O2 Flow Rate FiO2 08/04/16 08:00 97.1 68 18 98/50 99 Room Air 08/04/16 04:00 97.9 72 18 110/65 99 Room Air 08/04/16 01:00 97.2 66 18 104/62 97 Room Air 08/03/16 20:00 98.3 70 19 120/60 98 Room Air 08/03/16 16:00 98.2 66 18 127/62 98 Room Air Intake and Output 08/03/16 08/04/16 19:00 07:00 Intake Total 955 ml 1030 ml Output Total 1400 ml Balance 955 ml -370 ml Intake Oral 240 ml 480 ml IV Total 715 ml 550 ml Output Urine Total 1400 ml # Voids 2 1 Height (Feet): 5 Height (Inches): 9.00 Weight (Pounds): 150 General Appearance: lethargic EENT: normal ENT inspection Neck: normal alignment Cardiovascular: normal peripheral pulses, normal rate, regular rhythm Respiratory/Chest: chest wall non-tender, lungs clear, normal breath sounds Abdomen: normal bowel sounds, non tender, soft Extremities: normal inspection Edema: no edema noted Arm (L), no edema noted Arm (R), no edema noted Leg (L), no edema noted Leg (R), no edema noted Pedal (L), no edema noted Pedal (R), no edema noted Generalized Neurologic: motor weakness Skin: normal pigmentation, warm/dry BEAN REESE Aug 04, 2016 13:30
--- NOTE | 2016-08-04 15:45 | Infectious Diseases Prog Note ---
Assessment/Plan Problems: (1) Meningitis Assessment & Plan: improving, with lymphocytosis on CSF, viral VS fungal VS TB , HSV on CSF, and coccidiomycosis titer are pending , continue amphotericin and acyclovir empirically for now, pending further work up. off antibiotics since CSF culture and gram stain is negative . (2) HIV (human immunodeficiency virus infection) Assessment & Plan: was on stribild before but stopped taking it for the last three months. he refused to restart it here thinking it will exacerbate his infection, eventhough he was reassured. await viral load and CD4 counts for staging , patient needs counseling and referral to HIV provider to start ART as an outpatient , once discharged, all risk and benefits were explained to the patient and he understood. screening for syphilis, toxo, and TB in process (3) Fever Assessment & Plan: improved, due to the above, continue wide spectrum antimicrobials, pending further work up Subjective Constitutional: Reports: no symptoms HEENT: Reports: no symptoms Respiratory: Reports: no symptoms Breasts: Reports: no symptoms Cardiovascular: Reports: no symptoms Gastrointestinal/Abdominal: Reports: no symptoms Genitourinary: Reports: no symptoms Neurologic: Reports: no symptoms Psychiatric: Reports: no symptoms Skin: Reports: no symptoms Endocrine: Reports: no symptoms Allergies: Coded Allergies: Pecan (Verified Allergy, Unknown, 07/31/16) Taylor reports his throat closes up VANCOMYCIN (Verified Adverse Reaction, Intermediate, Hives, 08/02/16) patient developed hives, they went away after few hours after medication was stopped Uncoded Allergies: peanuts (Allergy, Unknown, 07/31/16) Taylor reports his throat closes up Objective Vital Signs Last 24 Hour Vital Signs Date Time Temp Pulse Resp B/P Pulse Ox O2 Delivery O2 Flow Rate FiO2 08/04/16 12:00 97.6 65 18 121/50 100 Room Air 08/04/16 08:00 97.1 68 18 98/50 99 Room Air 08/04/16 04:00 97.9 72 18 110/65 99 Room Air 08/04/16 01:00 97.2 66 18 104/62 97 Room Air 08/03/16 20:00 98.3 70 19 120/60 98 Room Air 08/03/16 16:00 98.2 66 18 127/62 98 Room Air Height (Feet): 5 Height (Inches): 9.00 Weight (Pounds): 150 General Appearance: WD/WN, no acute distress HEENT: normocephalic, atraumatic, anicteric, mucous membranes moist Respiratory/Chest: chest wall non-tender, lungs clear, normal breath sounds, no respiratory distress, no accessory muscle use Cardiovascular: normal peripheral pulses, normal rate, regular rhythm, no gallop/murmur Abdomen: normal bowel sounds, soft, non tender, no organomegaly, non distended , no mass Extremities: no cyanosis, no clubbing Skin: no rash, no lesions Current Medications Medications (Trade) Dose Ordered Sig/Genaro Route PRN Reason Start Time Stop Time Status Last Admin Dose Admin Acetaminophen 650 mg 650 mg Q4H PRN ORAL Mild Pain/Temp > 100.5 07/31/16 15:45 08/30/16 15:44 08/01/16 04:59 Acyclovir 700 mg/ Sodium Chloride 110 ml @ 110 mls/hr Q8H IV 08/01/16 11:30 08/31/16 11:29 08/04/16 11:18 Amphotericin B Liposome/Dextrose (Ambisome/D5W) 275 ml @ 137.5 mls/ hr Q24H IV 08/01/16 12:00 08/06/16 11:59 08/04/16 12:30 Ampicillin/Sodium Chloride (Ampicillin/ Sodium Chloride) 110 ml @ 220 mls/hr EVERY 4 HOURS IVPB 07/31/16 21:00 08/07/16 20:59 08/04/16 14:28 Diphenhydramine HCl (Benadryl) 25 mg Q6H PRN IVP Itching 08/02/16 08:30 09/01/16 08:29 Heparin Sodium (Porcine) (Heparin 5000 units/ml) 5,000 units EVERY 12 HOURS SUBQ 07/31/16 21:00 08/30/16 20:59 08/03/16 08:39 Morphine Sulfate 4 mg 4 mg Q4H PRN IVP Severe Pain (Pain Scale 7-10) 07/31/16 18:30 08/07/16 18:29 08/03/16 23:41 Ondansetron HCl (Zofran) 4 mg Q4H PRN IVP Nausea & Vomiting 08/03/16 07:00 09/02/16 06:59 6/1/17 05:51 Patient Own Medication (Patient's Own Med) 1 ea DAILY ORAL 08/02/16 16:00 09/01/16 15:59 08/02/16 16:27 Polyethylene Glycol (Miralax) 17 gm DAILYPRN PRN ORAL Constipation 08/02/16 16:45 09/01/16 16:44 Humberto Montemayor M.D. Aug 04, 2016 15:45
[2016-08-04 16:00] VITALS: BP 111/65
[2016-08-04 19:24] VITALS: BP 119/61
[2016-08-04] MEDS: Morphine Sulfate 4mg/ml Inj IVP PRN (19:45)
[2016-08-05 00:28] VITALS: BP 111/61
[2016-08-05] MEDS: Acyclovir 700 MG in NS 110 ML IV SCH ×2 (02:50→12:23)
[2016-08-05 04:22] VITALS: BP 94/63
[2016-08-05 08:39] VITALS: BP 103/53
[2016-08-05] MEDS: Heparin 5000 units/ml inj SUBQ SCH ×2 (09:00→20:33)
--- NOTE | 2016-08-05 09:00 | Pulmonology Progress Note ---
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 case discussed and evaluated by supervising physician Subjective Allergies: Coded Allergies: Pecan (Verified Allergy, Unknown, 07/31/16) Triciat reports his throat closes up VANCOMYCIN (Verified Adverse Reaction, Intermediate, Hives, 08/02/16) patient developed hives, they went away after few hours after medication was stopped Uncoded Allergies: peanuts (Allergy, Unknown, 07/31/16) Taylor reports his throat closes up Subjective denies chest pain, SOB still intermittent headache, no dizziness Objective Last 24 Hour Vital Signs Date Time Temp Pulse Resp B/P Pulse Ox O2 Delivery O2 Flow Rate FiO2 08/05/16 08:39 97.5 71 18 103/53 97 Room Air 08/05/16 04:22 97.2 67 20 94/63 98 Room Air 08/05/16 00:28 97.3 59 20 111/61 97 Room Air 08/04/16 20:15 97.7 08/04/16 19:24 97.7 62 20 119/61 98 Room Air 08/04/16 16:00 97.8 61 18 111/65 100 Room Air 08/04/16 12:00 97.6 65 18 121/50 100 Room Air Intake and Output 08/04/16 08/05/16 19:00 07:00 Intake Total 1345.0 ml Output Total 1001 ml Balance 344.0 ml Intake Oral 960 ml IV Total 385.0 ml Output Urine Total 1000 ml Stool Total 1 ml # Voids 4 General Appearance: no acute distress, other - awake, alert, poor eye contact HEENT: normocephalic, atraumatic, anicteric, mucous membranes moist Respiratory/Chest: lungs clear, no respiratory distress, no accessory muscle use Cardiovascular: normal rate, regular rhythm Abdomen: soft, non tender, non distended Genitourinary: normal external genitalia Extremities: no edema Neurologic/Psychiatric: no motor/sensory deficits, alert, responsive Musculoskeletal: normal muscle bulk Current Medications Medications (Trade) Dose Ordered Sig/Genaro Route PRN Reason Start Time Stop Time Status Last Admin Dose Admin Acetaminophen (Tylenol) 650 mg Q4H PRN ORAL Mild Pain/Temp > 100.5 07/31/16 15:45 08/30/16 15:44 08/01/16 04:59 Acyclovir 700 mg/ Sodium Chloride 110 ml @ 110 mls/hr Q8H IV 08/01/16 11:30 08/31/16 11:29 08/05/16 02:50 Amphotericin B Liposome/Dextrose (Ambisome/D5W) 275 ml @ 137.5 mls/ hr Q24H IV 08/01/16 12:00 08/06/16 11:59 08/04/16 12:30 Diphenhydramine HCl (Benadryl) 25 mg Q6H PRN IVP Itching 08/02/16 08:30 09/01/16 08:29 Heparin Sodium (Porcine) (Heparin 5000 units/ml) 5,000 units EVERY 12 HOURS SUBQ 07/31/16 21:00 08/30/16 20:59 08/03/16 08:39 Morphine Sulfate 4 mg 4 mg Q4H PRN IVP Severe Pain (Pain Scale 7-10) 07/31/16 18:30 08/07/16 18:29 08/04/16 19:45 Ondansetron HCl (Zofran) 4 mg Q4H PRN IVP Nausea & Vomiting 08/03/16 07:00 09/02/16 06:59 08/04/16 22:26 Patient Own Medication (Patient's Own Med) 1 ea DAILY ORAL 08/02/16 16:00 09/01/16 15:59 08/02/16 16:27 Polyethylene Glycol (Miralax) 17 gm DAILYPRN PRN ORAL Constipation 08/02/16 16:45 09/01/16 16:44 Tuberculin PPD (Tubersol (PPD)) 0.1 ml ONCE ONCE IDERMAL 08/05/16 10:00 08/05/16 10:01 Clarissa Busby NP (Vanchtein) Aug 05, 2016 09:00
[2016-08-05 09:25] LABS: T SPOT TB TEST NOT PERFORMED
[2016-08-05] MEDS ORDERED: PPD Tuberculin Skin Test 5TU IDERMAL ONE (10:00)
[2016-08-05 11:09] LABS: BASOPHILS % (AUTO) 0.7 % (0.0-2.0); LYMPHOCYTES % (AUTO) 33.2 % (20.0-45.0); MEAN CORPUSCULAR HEMOGLOBIN 25.7 PG (27.0-31.0); MEAN CORPUSCULAR HGB CONC 32.6 G/DL (32.0-36.0); MEAN CORPUSCULAR VOLUME 79 FL (80-99); MEAN PLATELET VOLUME 6.8 FL (6.5-10.1); MONOCYTES % (AUTO) 9.6 % (1.0-10.0); NEUTROPHILS % (AUTO) 54.4 % (45.0-75.0); PLATELET COUNT 314 K/UL (150-450); RED BLOOD COUNT 4.51 M/UL (4.70-6.10); RED CELL DISTRIBUTION WIDTH 12.2 % (11.6-14.8); WHITE BLOOD COUNT 5.3 K/UL (4.8-10.8)
[2016-08-05 11:21] LABS: ANION GAP 9 (5-15); CALCIUM 8.9 mg/dL (8.6-10.2); CARBON DIOXIDE 31 mEQ/L (20-30); CHLORIDE 103 mEQ/L (98-107); CREATININE 0.9 mg/dL (0.7-1.2); GLOMERULAR FILTRATION RATE > 60 mL/min (>60); HEMOLYSIS 1; POTASSIUM 3.9 mEQ/L (3.4-4.9); SODIUM 143 mEQ/L (135-145)
[2016-08-05 12:20] VITALS: BP 102/53
--- NOTE | 2016-08-05 14:33 | General Progress Note ---
Assessment/Plan Problem List: (1) Fever ICD Codes: R50.9 - Fever, unspecified SNOMED: 128499162 (2) Anemia ICD Codes: D64.9 - Anemia, unspecified SNOMED: 982399995 (3) HIV (human immunodeficiency virus infection) ICD Codes: Z21 - Asymptomatic human immunodeficiency virus [HIV] infection status SNOMED: 37504761 (4) Headache ICD Codes: R51 - Headache SNOMED: 36683618 Status: stable, progressing, tolerating diet Assessment/Plan ot pt diet abx dc if id clears Subjective Constitutional: Reports: weakness Allergies: Coded Allergies: Pecan (Verified Allergy, Unknown, 07/31/16) Paitent reports his throat closes up VANCOMYCIN (Verified Adverse Reaction, Intermediate, Hives, 08/02/16) patient developed hives, they went away after few hours after medication was stopped Uncoded Allergies: peanuts (Allergy, Unknown, 07/31/16) Paitent reports his throat closes up All Systems: reviewed and negative except above Subjective sleepy calm Objective Last 24 Hour Vital Signs Date Time Temp Pulse Resp B/P Pulse Ox O2 Delivery O2 Flow Rate FiO2 08/05/16 12:20 97.5 69 18 102/53 97 Room Air 08/05/16 08:39 97.5 71 18 103/53 97 Room Air 08/05/16 04:22 97.2 67 20 94/63 98 Room Air 08/05/16 00:28 97.3 59 20 111/61 97 Room Air 08/04/16 20:15 97.7 08/04/16 19:24 97.7 62 20 119/61 98 Room Air 08/04/16 16:00 97.8 61 18 111/65 100 Room Air Intake and Output 08/04/16 08/05/16 19:00 07:00 Intake Total 1345.0 ml Output Total 1001 ml Balance 344.0 ml Intake Oral 960 ml IV Total 385.0 ml Output Urine Total 1000 ml Stool Total 1 ml # Voids 4 Laboratory Tests 08/05/16 10:45: White Blood Count 5.3, Red Blood Count 4.51L, Hemoglobin 11.6L, Hematocrit 35.5L , Mean Corpuscular Volume 79L, Mean Corpuscular Hemoglobin 25.7L, Mean Corpuscular Hemoglobin Concent 32.6, Red Cell Distribution Width 12.2, Platelet Count 314, Mean Platelet Volume 6.8, Neutrophils (%) (Auto) 54.4, Lymphocytes (% ) (Auto) 33.2, Monocytes (%) (Auto) 9.6, Eosinophils (%) (Auto) 2.0, Basophils ( %) (Auto) 0.7, Sodium Level 143, Potassium Level 3.9, Chloride Level 103, Carbon Dioxide Level 31H, Anion Gap 9, Blood Urea Nitrogen 12, Creatinine 0.9, Estimat Glomerular Filtration Rate > 60, Glucose Level 103, Calcium Level 8.9, TB Test (T-Spot) [Pending], TB Test Nil Control (T-Spot) [Pending], TB Test Panel A (T-Spot) [Pending], TB Test Panel B (T-Spot) [Pending], TB Test Positive Control (T-Spot) [Pending] Height (Feet): 5 Height (Inches): 9.00 Weight (Pounds): 150 General Appearance: lethargic EENT: normal ENT inspection Neck: normal alignment Cardiovascular: normal peripheral pulses, normal rate, regular rhythm Respiratory/Chest: chest wall non-tender, lungs clear, normal breath sounds Abdomen: normal bowel sounds, non tender, soft Extremities: normal inspection Edema: no edema noted Arm (L), no edema noted Arm (R), no edema noted Leg (L), no edema noted Leg (R), no edema noted Pedal (L), no edema noted Pedal (R), no edema noted Generalized Neurologic: motor weakness Skin: normal pigmentation, warm/dry BEAN REESE Aug 05, 2016 14:33
[2016-08-05] MEDS: D5W IV SCH (14:56)
[2016-08-05] MEDS: AMPHOTERICIN B LIPOSOME IV SCH (14:56)
--- NOTE | 2016-08-05 15:17 | Infectious Diseases Prog Note ---
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 HSV on CSF, and coccidiomycosis titer are pending , will stop amphotericin and acyclovir since patient refused to take them . he is aware of the risk . pending further work up. (2) HIV (human immunodeficiency virus infection) Assessment & Plan: was on stribild before but stopped taking it for the last three months. he refused to restart it here thinking it will exacerbate his infection, eventhough he was reassured. await viral load and CD4 counts for staging , patient needs counseling and referral to HIV provider to start ART as an outpatient , once discharged, all risk and benefits were explained to the patient and he understood. screening for syphilis, toxo, and TB in process (3) Fever Assessment & Plan: improved, due to the above, continue wide spectrum antimicrobials, pending further work up Subjective Constitutional: Reports: no symptoms HEENT: Reports: no symptoms Respiratory: Reports: no symptoms Breasts: Reports: no symptoms Cardiovascular: Reports: no symptoms Gastrointestinal/Abdominal: Reports: no symptoms Genitourinary: Reports: no symptoms Neurologic: Reports: no symptoms Psychiatric: Reports: no symptoms Skin: Reports: no symptoms Endocrine: Reports: no symptoms Hematologic: Reports: no symptoms Allergies: Coded Allergies: Pecan (Verified Allergy, Unknown, 07/31/16) Taylor reports his throat closes up VANCOMYCIN (Verified Adverse Reaction, Intermediate, Hives, 08/02/16) patient developed hives, they went away after few hours after medication was stopped Uncoded Allergies: peanuts (Allergy, Unknown, 07/31/16) Taylor reports his throat closes up Objective Vital Signs Last 24 Hour Vital Signs Date Time Temp Pulse Resp B/P Pulse Ox O2 Delivery O2 Flow Rate FiO2 08/05/16 12:20 97.5 69 18 102/53 97 Room Air 08/05/16 08:39 97.5 71 18 103/53 97 Room Air 08/05/16 04:22 97.2 67 20 94/63 98 Room Air 08/05/16 00:28 97.3 59 20 111/61 97 Room Air 08/04/16 20:15 97.7 08/04/16 19:24 97.7 62 20 119/61 98 Room Air 08/04/16 16:00 97.8 61 18 111/65 100 Room Air Height (Feet): 5 Height (Inches): 9.00 Weight (Pounds): 150 General Appearance: WD/WN, no acute distress HEENT: normocephalic, atraumatic, anicteric, mucous membranes moist Respiratory/Chest: chest wall non-tender, lungs clear, normal breath sounds, no respiratory distress, no accessory muscle use Cardiovascular: normal peripheral pulses, normal rate, regular rhythm, no gallop/murmur, no JVD Abdomen: normal bowel sounds, soft, non tender, no organomegaly, non distended , no scars Extremities: no cyanosis, no clubbing Skin: no rash, no lesions Laboratory Tests Test 08/05/16 10:45 White Blood Count 5.3 K/UL (4.8-10.8) Red Blood Count 4.51 M/UL (4.70-6.10) L Hemoglobin 11.6 G/DL (14.2-18.0) L Hematocrit 35.5 % (42.0-52.0) L Mean Corpuscular Volume 79 FL (80-99) L Mean Corpuscular Hemoglobin 25.7 PG (27.0-31.0) L Mean Corpuscular Hemoglobin Concent 32.6 G/DL (32.0-36.0) Red Cell Distribution Width 12.2 % (11.6-14.8) Platelet Count 314 K/UL (150-450) Mean Platelet Volume 6.8 FL (6.5-10.1) Neutrophils (%) (Auto) 54.4 % (45.0-75.0) Lymphocytes (%) (Auto) 33.2 % (20.0-45.0) Monocytes (%) (Auto) 9.6 % (1.0-10.0) Eosinophils (%) (Auto) 2.0 % (0.0-3.0) Basophils (%) (Auto) 0.7 % (0.0-2.0) Sodium Level 143 mEQ/L (135-145) Potassium Level 3.9 mEQ/L (3.4-4.9) Chloride Level 103 mEQ/L (98-107) Carbon Dioxide Level 31 mEQ/L (20-30) H Anion Gap 9 (5-15) Blood Urea Nitrogen 12 mg/dL (7-23) Creatinine 0.9 mg/dL (0.7-1.2) Estimat Glomerular Filtration Rate > 60 mL/min (>60) Glucose Level 103 mg/dL (74-106) Calcium Level 8.9 mg/dL (8.6-10.2) TB Test (T-Spot) Pending TB Test Nil Control (T-Spot) Pending TB Test Panel A (T-Spot) Pending TB Test Panel B (T-Spot) Pending TB Test Positive Control (T-Spot) Pending Current Medications Medications (Trade) Dose Ordered Sig/Genaro Route PRN Reason Start Time Stop Time Status Last Admin Dose Admin Acetaminophen (Tylenol) 650 mg Q4H PRN ORAL Mild Pain/Temp > 100.5 07/31/16 15:45 08/30/16 15:44 08/01/16 04:59 Acyclovir 700 mg/ Sodium Chloride 110 ml @ 110 mls/hr Q8H IV 08/01/16 11:30 08/31/16 11:29 08/05/16 12:23 Amphotericin B Liposome/Dextrose (Ambisome/D5W) 275 ml @ 137.5 mls/ hr Q24H IV 08/01/16 12:00 08/06/16 11:59 08/05/16 14:56 Diphenhydramine HCl (Benadryl) 25 mg Q6H PRN IVP Itching 08/02/16 08:30 09/01/16 08:29 Heparin Sodium (Porcine) (Heparin 5000 units/ml) 5,000 units EVERY 12 HOURS SUBQ 07/31/16 21:00 08/30/16 20:59 08/03/16 08:39 Morphine Sulfate 4 mg 4 mg Q4H PRN IVP Severe Pain (Pain Scale 7-10) 07/31/16 18:30 08/07/16 18:29 08/04/16 19:45 Ondansetron HCl 4 mg 4 mg Q4H PRN IVP Nausea & Vomiting 08/03/16 07:00 09/02/16 06:59 08/04/16 22:26 Patient Own Medication (Patient's Own Med) 1 ea DAILY ORAL 08/02/16 16:00 09/01/16 15:59 08/02/16 16:27 Penicillin G Potassium/Sodium Chloride (Penicillin G Potassium/Sodium Chloride) 55 ml @ 110 mls/hr Q4HR IVPB 08/05/16 15:00 08/19/16 14:59 Polyethylene Glycol (Miralax) 17 gm DAILYPRN PRN ORAL Constipation 08/02/16 16:45 09/01/16 16:44 Humberto Montemayor M.D. Aug 05, 2016 15:17
[2016-08-05] MEDS: Penicillin G Potassium 4 MU in NS 55 ML IVPB SCH ×2 (16:40→20:36)
[2016-08-05 16:42] VITALS: BP 110/56
[2016-08-05 20:31] VITALS: BP 113/59
[2016-08-05] MEDS: Morphine Sulfate 4mg/ml Inj IVP PRN (21:19)
[2016-08-06 00:21] VITALS: BP 108/56
[2016-08-06] MEDS: Penicillin G Potassium 4 MU in NS 55 ML IVPB SCH ×6 (00:40→21:40)
[2016-08-06 04:25] VITALS: BP 110/60
[2016-08-06 08:10] VITALS: BP 125/78
[2016-08-06] MEDS: Heparin 5000 units/ml inj SUBQ SCH ×2 (09:00→21:00)
--- NOTE | 2016-08-06 10:35 | General Progress Note ---
Assessment/Plan Problem List: (1) Fever ICD Codes: R50.9 - Fever, unspecified SNOMED: 263601563 (2) Anemia ICD Codes: D64.9 - Anemia, unspecified SNOMED: 320564778 (3) HIV (human immunodeficiency virus infection) ICD Codes: Z21 - Asymptomatic human immunodeficiency virus [HIV] infection status SNOMED: 11286718 (4) Headache ICD Codes: R51 - Headache SNOMED: 60342211 Status: stable, progressing, tolerating diet Assessment/Plan ot pt diet abx dc if id clears Subjective Allergies: Coded Allergies: Pecan (Verified Allergy, Unknown, 07/31/16) Paitent reports his throat closes up VANCOMYCIN (Verified Adverse Reaction, Intermediate, Hives, 08/02/16) patient developed hives, they went away after few hours after medication was stopped Uncoded Allergies: peanuts (Allergy, Unknown, 07/31/16) Paitent reports his throat closes up All Systems: reviewed and negative except above Subjective sleepy calm Objective Last 24 Hour Vital Signs Date Time Temp Pulse Resp B/P Pulse Ox O2 Delivery O2 Flow Rate FiO2 08/06/16 08:10 98.6 78 19 125/78 99 Room Air 08/06/16 04:25 97.9 66 19 110/60 98 Room Air 08/06/16 00:21 98.1 63 18 108/56 97 Room Air 08/05/16 21:49 97.9 08/05/16 20:31 97.9 61 18 113/59 99 Room Air 08/05/16 16:42 97.9 58 15 110/56 97 Room Air 08/05/16 12:20 97.5 69 18 102/53 97 Room Air Intake and Output 08/05/16 08/06/16 19:00 07:00 Intake Total 1835 ml 295 ml Output Total 1000 ml 600 ml Balance 835 ml -305 ml Intake Oral 1780 ml 240 ml IV Total 55 ml 55 ml Output Urine Total 1000 ml 600 ml # Voids 2 Laboratory Tests 08/05/16 10:45: White Blood Count 5.3, Red Blood Count 4.51L, Hemoglobin 11.6L, Hematocrit 35.5L , Mean Corpuscular Volume 79L, Mean Corpuscular Hemoglobin 25.7L, Mean Corpuscular Hemoglobin Concent 32.6, Red Cell Distribution Width 12.2, Platelet Count 314, Mean Platelet Volume 6.8, Neutrophils (%) (Auto) 54.4, Lymphocytes (% ) (Auto) 33.2, Monocytes (%) (Auto) 9.6, Eosinophils (%) (Auto) 2.0, Basophils ( %) (Auto) 0.7, Sodium Level 143, Potassium Level 3.9, Chloride Level 103, Carbon Dioxide Level 31H, Anion Gap 9, Blood Urea Nitrogen 12, Creatinine 0.9, Estimat Glomerular Filtration Rate > 60, Glucose Level 103, Calcium Level 8.9, TB Test (T-Spot) [Pending], TB Test Nil Control (T-Spot) [Pending], TB Test Panel A (T-Spot) [Pending], TB Test Panel B (T-Spot) [Pending], TB Test Positive Control (T-Spot) [Pending] Height (Feet): 5 Height (Inches): 9.00 Weight (Pounds): 150 General Appearance: lethargic EENT: normal ENT inspection Neck: normal alignment Cardiovascular: normal peripheral pulses, normal rate, regular rhythm Respiratory/Chest: chest wall non-tender, lungs clear, normal breath sounds Abdomen: normal bowel sounds, non tender, soft Extremities: normal inspection Edema: no edema noted Arm (L), no edema noted Arm (R), no edema noted Leg (L), no edema noted Leg (R), no edema noted Pedal (L), no edema noted Pedal (R), no edema noted Generalized Neurologic: motor weakness Skin: normal pigmentation, warm/dry BEAN REESE Aug 06, 2016 10:35
[2016-08-06] MEDS ORDERED: Tubing IV Secondary IV ONE ×2 (10:44)
[2016-08-06] MEDS ORDERED: NS 275ml ONE (10:44)
[2016-08-06 12:00] VITALS: BP 101/51
--- NOTE | 2016-08-06 14:09 | Pulmonology Progress Note ---
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 from street drugs case discussed and evaluated by supervising physician Subjective Allergies: Coded Allergies: Pecan (Verified Allergy, Unknown, 07/31/16) Taylor reports his throat closes up VANCOMYCIN (Verified Adverse Reaction, Intermediate, Hives, 08/02/16) patient developed hives, they went away after few hours after medication was stopped Uncoded Allergies: peanuts (Allergy, Unknown, 07/31/16) Taylor reports his throat closes up Subjective denies chest pain, SOB still intermittent headache, no dizziness Objective Last 24 Hour Vital Signs Date Time Temp Pulse Resp B/P Pulse Ox O2 Delivery O2 Flow Rate FiO2 08/06/16 12:00 97.3 58 18 101/51 99 Room Air 08/06/16 08:10 98.6 78 19 125/78 99 Room Air 08/06/16 04:25 97.9 66 19 110/60 98 Room Air 08/06/16 00:21 98.1 63 18 108/56 97 Room Air 08/05/16 21:49 97.9 08/05/16 20:31 97.9 61 18 113/59 99 Room Air 08/05/16 16:42 97.9 58 15 110/56 97 Room Air Intake and Output 08/05/16 08/06/16 19:00 07:00 Intake Total 1835 ml 295 ml Output Total 1000 ml 600 ml Balance 835 ml -305 ml Intake Oral 1780 ml 240 ml IV Total 55 ml 55 ml Output Urine Total 1000 ml 600 ml # Voids 2 Objective General Appearance: no acute distress, other - awake, alert, poor eye contact HEENT: normocephalic, atraumatic, anicteric, mucous membranes moist Respiratory/Chest: lungs clear, no respiratory distress, no accessory muscle use Cardiovascular: normal rate, regular rhythm Abdomen: soft, non tender, non distended Genitourinary: normal external genitalia Extremities: no edema Neurologic/Psychiatric: no motor/sensory deficits, alert, responsive Musculoskeletal: normal muscle bulk Current Medications Medications (Trade) Dose Ordered Sig/Genaro Route PRN Reason Start Time Stop Time Status Last Admin Dose Admin Acetaminophen (Tylenol) 650 mg Q4H PRN ORAL Mild Pain/Temp > 100.5 07/31/16 15:45 08/30/16 15:44 08/01/16 04:59 Diphenhydramine HCl (Benadryl) 25 mg Q6H PRN IVP Itching 08/02/16 08:30 09/01/16 08:29 Heparin Sodium (Porcine) (Heparin 5000 units/ml) 5,000 units EVERY 12 HOURS SUBQ 07/31/16 21:00 08/30/16 20:59 08/03/16 08:39 Morphine Sulfate (Morphine Sulfate) 4 mg Q4H PRN IVP Severe Pain (Pain Scale 7-10) 07/31/16 18:30 08/07/16 18:29 08/05/16 21:19 Ondansetron HCl 4 mg 4 mg Q4H PRN IVP Nausea & Vomiting 08/03/16 07:00 09/02/16 06:59 08/04/16 22:26 Patient Own Medication (Patient's Own Med) 1 ea DAILY ORAL 08/02/16 16:00 09/01/16 15:59 08/02/16 16:27 Penicillin G Potassium/Sodium Chloride (Penicillin G Potassium/Sodium Chloride) 55 ml @ 110 mls/hr Q4HR IVPB 08/05/16 15:00 08/19/16 14:59 08/06/16 13:42 Polyethylene Glycol (Miralax) 17 gm DAILYPRN PRN ORAL Constipation 08/02/16 16:45 09/01/16 16:44 Clarissa Busby NP ([facility]anchtein) Aug 06, 2016 14:09
--- NOTE | 2016-08-06 14:36 | Infectious Diseases Prog Note ---
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 HSV on CSF, and coccidiomycosis titer are pending , off amphotericin and acyclovir since patient refused to take them . he is aware of the risk . pending further work up. (2) HIV (human immunodeficiency virus infection) Assessment & Plan: was on stribild before but stopped taking it for the last three months. he refused to restart it here thinking it will exacerbate his infection, eventhough he was reassured. await viral load and CD4 counts for staging , patient needs counseling and referral to HIV provider to start ART as an outpatient , once discharged, all risk and benefits were explained to the patient and he understood. screening for syphilis, toxo, and TB in process Subjective Constitutional: Reports: no symptoms HEENT: Reports: no symptoms Respiratory: Reports: no symptoms Breasts: Reports: no symptoms Cardiovascular: Reports: no symptoms Gastrointestinal/Abdominal: Reports: no symptoms Genitourinary: Reports: no symptoms Neurologic: Reports: no symptoms Psychiatric: Reports: no symptoms Skin: Reports: no symptoms Endocrine: Reports: no symptoms Allergies: Coded Allergies: Pecan (Verified Allergy, Unknown, 07/31/16) Paitent reports his throat closes up VANCOMYCIN (Verified Adverse Reaction, Intermediate, Hives, 08/02/16) patient developed hives, they went away after few hours after medication was stopped Uncoded Allergies: peanuts (Allergy, Unknown, 07/31/16) Paitent reports his throat closes up Objective Vital Signs Last 24 Hour Vital Signs Date Time Temp Pulse Resp B/P Pulse Ox O2 Delivery O2 Flow Rate FiO2 08/06/16 12:00 97.3 58 18 101/51 99 Room Air 08/06/16 08:10 98.6 78 19 125/78 99 Room Air 08/06/16 04:25 97.9 66 19 110/60 98 Room Air 08/06/16 00:21 98.1 63 18 108/56 97 Room Air 08/05/16 21:49 97.9 08/05/16 20:31 97.9 61 18 113/59 99 Room Air 08/05/16 16:42 97.9 58 15 110/56 97 Room Air Height (Feet): 5 Height (Inches): 9.00 Weight (Pounds): 150 General Appearance: WD/WN, no acute distress HEENT: normocephalic, atraumatic, anicteric, mucous membranes moist Respiratory/Chest: chest wall non-tender, lungs clear, normal breath sounds, no respiratory distress, no accessory muscle use Cardiovascular: normal peripheral pulses, normal rate, regular rhythm, no gallop/murmur, no JVD Abdomen: normal bowel sounds, soft, non tender, no organomegaly, non distended , no mass Extremities: no cyanosis, no clubbing Skin: no rash, no lesions Current Medications Medications (Trade) Dose Ordered Sig/Genaro Route PRN Reason Start Time Stop Time Status Last Admin Dose Admin Acetaminophen (Tylenol) 650 mg Q4H PRN ORAL Mild Pain/Temp > 100.5 07/31/16 15:45 08/30/16 15:44 08/01/16 04:59 Diphenhydramine HCl (Benadryl) 25 mg Q6H PRN IVP Itching 08/02/16 08:30 09/01/16 08:29 Heparin Sodium (Porcine) (Heparin 5000 units/ml) 5,000 units EVERY 12 HOURS SUBQ 07/31/16 21:00 08/30/16 20:59 08/03/16 08:39 Morphine Sulfate (Morphine Sulfate) 4 mg Q4H PRN IVP Severe Pain (Pain Scale 7-10) 08/06/16 15:00 08/13/16 14:59 Ondansetron HCl 4 mg 4 mg Q4H PRN IVP Nausea & Vomiting 08/03/16 07:00 09/02/16 06:59 08/04/16 22:26 Patient Own Medication (Patient's Own Med) 1 ea DAILY ORAL 08/02/16 16:00 09/01/16 15:59 08/02/16 16:27 Penicillin G Potassium/Sodium Chloride (Penicillin G Potassium/Sodium Chloride) 55 ml @ 110 mls/hr Q4HR IVPB 08/05/16 15:00 08/19/16 14:59 08/06/16 13:42 Polyethylene Glycol (Miralax) 17 gm DAILYPRN PRN ORAL Constipation 08/02/16 16:45 09/01/16 16:44 Humberto Montemayor M.D. Aug 06, 2016 14:36
[2016-08-06] MEDS ORDERED: Morphine Sulfate 4mg/ml Inj IVP PRN (15:00)
[2016-08-06 16:00] VITALS: BP 110/54
[2016-08-06 20:00] VITALS: BP 114/54
[2016-08-07] VITALS: BP 99/47
[2016-08-07] MEDS: Penicillin G Potassium 4 MU in NS 55 ML IVPB SCH ×6 (00:53→21:00)
[2016-08-07 04:00] VITALS: BP 107/59
[2016-08-07 08:00] VITALS: BP 85/44
--- NOTE | 2016-08-07 08:31 | General Progress Note ---
Assessment/Plan Problem List: (1) Fever ICD Codes: R50.9 - Fever, unspecified SNOMED: 811405473 (2) Anemia ICD Codes: D64.9 - Anemia, unspecified SNOMED: 747963130 (3) HIV (human immunodeficiency virus infection) ICD Codes: Z21 - Asymptomatic human immunodeficiency virus [HIV] infection status SNOMED: 23981491 (4) Headache ICD Codes: R51 - Headache SNOMED: 90477016 Status: stable, progressing, tolerating diet Assessment/Plan ot pt diet abx cbc bmp am dc if id clears Subjective Constitutional: Reports: weakness Allergies: Coded Allergies: Pecan (Verified Allergy, Unknown, 07/31/16) Paitent reports his throat closes up VANCOMYCIN (Verified Adverse Reaction, Intermediate, Hives, 08/02/16) patient developed hives, they went away after few hours after medication was stopped Uncoded Allergies: peanuts (Allergy, Unknown, 07/31/16) Paitent reports his throat closes up All Systems: reviewed and negative except above Subjective sleepy calm Objective Last 24 Hour Vital Signs Date Time Temp Pulse Resp B/P Pulse Ox O2 Delivery O2 Flow Rate FiO2 08/07/16 08:00 97.7 64 20 85/44 98 Room Air 08/07/16 04:00 97.8 57 18 107/59 99 Room Air 08/07/16 00:00 98.0 58 18 99/47 98 Room Air 08/06/16 23:16 97.6 08/06/16 20:00 97.6 58 18 114/54 99 Room Air 08/06/16 16:00 97.5 64 19 110/54 Room Air 08/06/16 12:00 97.3 58 18 101/51 99 Room Air Intake and Output 08/06/16 08/07/16 19:00 07:00 Intake Total 165 ml 765 ml Output Total 1250 ml Balance 165 ml -485 ml Intake Oral 600 ml IV Total 165 ml 165 ml Output Urine Total 1250 ml Height (Feet): 5 Height (Inches): 9.00 Weight (Pounds): 150 General Appearance: lethargic EENT: normal ENT inspection Neck: normal alignment Cardiovascular: normal peripheral pulses, normal rate, regular rhythm Respiratory/Chest: chest wall non-tender, lungs clear, normal breath sounds Abdomen: normal bowel sounds, non tender, soft Extremities: normal inspection Edema: no edema noted Arm (L), no edema noted Arm (R), no edema noted Leg (L), no edema noted Leg (R), no edema noted Pedal (L), no edema noted Pedal (R), no edema noted Generalized Neurologic: motor weakness Skin: normal pigmentation, warm/dry BEAN REESE Aug 07, 2016 08:31
[2016-08-07] MEDS: Heparin 5000 units/ml inj SUBQ SCH ×2 (09:00→21:00)
[2016-08-07 11:49] LABS: NIL (NEG) CONTROL SPOT COUNT 0 (0-9); PANEL A SPOT COUNT 0; PANEL B SPOT COUNT 0; T SPOT TB NEGATIVE
[2016-08-07 11:50] LABS: POSITIVE CONTROL SPOT COUNT > 20
[2016-08-07 12:00] VITALS: BP 111/51
--- NOTE | 2016-08-07 13:35 | Pulmonology Progress Note ---
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 off amphotericin and acyclovir since patient refused to take them , risks of not compliance with medications were explained to huim by ID, still declined serology pending sputum AFB x 3 PPD-declined? TB test CT head no acute intracranial pathology CXR no acute cardiopulmonary disease O2 HHN prn T cell subset pending not on any ART, will need to start as outpatient when dc hepatitis panel pain management DVT prophylaxis PT/OT drug and alcohol counsellor on abstinence from street drugs case discussed and evaluated by supervising physician Subjective Allergies: Coded Allergies: Pecan (Verified Allergy, Unknown, 07/31/16) Racheltent reports his throat closes up VANCOMYCIN (Verified Adverse Reaction, Intermediate, Hives, 08/02/16) patient developed hives, they went away after few hours after medication was stopped Uncoded Allergies: peanuts (Allergy, Unknown, 07/31/16) Triciat reports his throat closes up Subjective denies chest pain, SOB still intermittent headache, no dizziness leukopenia resolved Objective Last 24 Hour Vital Signs Date Time Temp Pulse Resp B/P Pulse Ox O2 Delivery O2 Flow Rate FiO2 08/07/16 08:00 97.7 64 20 85/44 98 Room Air 08/07/16 04:00 97.8 57 18 107/59 99 Room Air 08/07/16 00:00 98.0 58 18 99/47 98 Room Air 08/06/16 23:16 97.6 08/06/16 20:00 97.6 58 18 114/54 99 Room Air 08/06/16 16:00 97.5 64 19 110/54 Room Air Intake and Output 08/06/16 08/07/16 19:00 07:00 Intake Total 165 ml 765 ml Output Total 1250 ml Balance 165 ml -485 ml Intake Oral 600 ml IV Total 165 ml 165 ml Output Urine Total 1250 ml Objective General Appearance: no acute distress, other - awake, alert, poor eye contact HEENT: normocephalic, atraumatic, anicteric, mucous membranes moist Respiratory/Chest: lungs clear, no respiratory distress, no accessory muscle use Cardiovascular: normal rate, regular rhythm Abdomen: soft, non tender, non distended Genitourinary: normal external genitalia Extremities: no edema Neurologic/Psychiatric: no motor/sensory deficits, alert, responsive Musculoskeletal: normal muscle bulk Current Medications Medications (Trade) Dose Ordered Sig/Genaro Route PRN Reason Start Time Stop Time Status Last Admin Dose Admin Acetaminophen (Tylenol) 650 mg Q4H PRN ORAL Mild Pain/Temp > 100.5 07/31/16 15:45 08/30/16 15:44 08/01/16 04:59 Diphenhydramine HCl (Benadryl) 25 mg Q6H PRN IVP Itching 08/02/16 08:30 09/01/16 08:29 Heparin Sodium (Porcine) (Heparin 5000 units/ml) 5,000 units EVERY 12 HOURS SUBQ 07/31/16 21:00 08/30/16 20:59 08/03/16 08:39 Morphine Sulfate (Morphine Sulfate) 4 mg Q4H PRN IVP Severe Pain (Pain Scale 7-10) 08/06/16 15:00 08/13/16 14:59 08/06/16 22:46 Ondansetron HCl 4 mg 4 mg Q4H PRN IVP Nausea & Vomiting 08/03/16 07:00 09/02/16 06:59 08/04/16 22:26 Patient Own Medication (Patient's Own Med) 1 ea DAILY ORAL 08/02/16 16:00 09/01/16 15:59 08/07/16 09:37 Penicillin G Potassium/Sodium Chloride (Penicillin G Potassium/Sodium Chloride) 55 ml @ 110 mls/hr Q4HR IVPB 08/05/16 15:00 08/19/16 14:59 08/07/16 09:37 Polyethylene Glycol (Miralax) 17 gm DAILYPRN PRN ORAL Constipation 08/02/16 16:45 09/01/16 16:44 Clarissa Busby NP (Vanchtein) Aug 07, 2016 13:35
[2016-08-07 20:17] VITALS: BP 98/52
[2016-08-08 00:03] VITALS: BP 120/70
[2016-08-08] MEDS: Penicillin G Potassium 4 MU in NS 55 ML IVPB SCH ×3 (01:00→09:00)
[2016-08-08 08:00] VITALS: BP 107/49
[2016-08-08] MEDS: Heparin 5000 units/ml inj SUBQ SCH (09:00)
[2016-08-08 09:05] VITALS: BP 107/49
[2016-08-08] MEDS ORDERED: Tubing IV Secondary IV ONE (12:59)
[2016-08-08] MEDS ORDERED: NS 275ml ONE (12:59)
--- NOTE | 2016-08-08 14:34 | General Progress Note ---
Assessment/Plan Problem List: (1) Fever ICD Codes: R50.9 - Fever, unspecified SNOMED: 974923437 (2) Anemia ICD Codes: D64.9 - Anemia, unspecified SNOMED: 029496354 (3) HIV (human immunodeficiency virus infection) ICD Codes: Z21 - Asymptomatic human immunodeficiency virus [HIV] infection status SNOMED: 27207048 (4) Headache ICD Codes: R51 - Headache SNOMED: 07356604 Status: stable, progressing, tolerating diet Assessment/Plan ot pt diet abx cbc bmp am dc if id clears Subjective Constitutional: Reports: weakness Allergies: Coded Allergies: Pecan (Verified Allergy, Unknown, 07/31/16) Paitent reports his throat closes up VANCOMYCIN (Verified Adverse Reaction, Intermediate, Hives, 08/02/16) patient developed hives, they went away after few hours after medication was stopped Uncoded Allergies: peanuts (Allergy, Unknown, 07/31/16) Paitent reports his throat closes up All Systems: reviewed and negative except above Subjective sleepy calm Objective Last 24 Hour Vital Signs Date Time Temp Pulse Resp B/P Pulse Ox O2 Delivery O2 Flow Rate FiO2 08/08/16 08:00 97.3 71 20 107/49 98 Room Air 08/08/16 00:03 98.6 76 20 120/70 99 Room Air 08/07/16 20:17 98.1 72 20 98/52 96 Room Air Intake and Output 08/07/16 08/08/16 19:00 07:00 Intake Total 320 ml Balance 320 ml Intake Oral 320 ml # Voids 4 4 Height (Feet): 5 Height (Inches): 9.00 Weight (Pounds): 150 General Appearance: lethargic EENT: normal ENT inspection Neck: normal alignment Cardiovascular: normal peripheral pulses, normal rate, regular rhythm Respiratory/Chest: chest wall non-tender, lungs clear, normal breath sounds Abdomen: normal bowel sounds, non tender, soft Extremities: normal inspection Edema: no edema noted Arm (L), no edema noted Arm (R), no edema noted Leg (L), no edema noted Leg (R), no edema noted Pedal (L), no edema noted Pedal (R), no edema noted Generalized Neurologic: motor weakness Skin: normal pigmentation, warm/dry BEAN REESE Aug 08, 2016 14:34
[2016-08-09 12:18] LABS: BLASTOMYCES AB - ID Negative (Neg:<1:1); HISTO AB YEAST 1:16 (Neg:<1:2); HISTOPLASMA MYCELIAL ID AB Negative (Negative); HIV RNA PCR QUANT 343410 copies/mL (.); HIV RNA PCR QUANT 5.536 (.); TOXOPLASMA IGG ANTIBODY <3.0 IU/mL (0.0-7.1); WBC 3.7 x10E3/uL (3.4-10.8)
--- NOTE | 2016-08-10 12:06 | Discharge Summary ---
Discharge Summary Hospital Course Date of Admission July 31, 2016 at 03:20 Date of Discharge Aug 08, 2016 at 13:00 Admitting Diagnosis headache/fever/immune suppression HPI Tariq Liz is a 25 year old male who was admitted on July 31, 2016 at 03:20 for Headache,Fever,Immune Suppression Hospital Course dc summary #[id number] Discharge Discharge Disposition Patient eloped Discharge Diagnoses: Kehinde (Mateocarolina)Clarissa NP Aug 10, 2016 12:06
--- NOTE | 2016-08-11 01:15 | Discharge Summary 2 SIG ---
DATE OF ADMISSION: 07/31/2016 DATE OF DISCHARGE: 08/08/2016 The patient is admitted under Dr. Pelletier. REASON FOR ADMISSION: The patient is a 25-year-old male with a history of human immunodeficiency virus, depression, and anxiety, presented to emergency room with complaints of headache for three days. He felt feverish and chills. He admitted to nausea and vomiting. He also reported two black stools, but no vomiting blood. No neck stiffness. Pain rated as 8/10, constant, diffuse, and not radiating. He did not take any medication for pain. The patient had low-grade fever of 99.5 degrees. Pulse oximetry stable on room air. No signs of meningismus. Since the patient presented with headache and fever and he has a history of human immunodeficiency virus, but he stopped taking his anti-retroviral medication, there was a concern of meningitis. Laboratory work revealed stable leukocytosis. CT of the head revealed no acute intracranial pathology. Chest x-ray was negative for any acute cardiopulmonary process. Urine tox screen positive for amphetamines and ESR 80. The patient subsequently undergone lumbar puncture. The patient was medicated for pain. EKG revealed normal sinus rhythm and no acute ischemic changes. The patient was slightly tachycardic to 104. The patient was admitted for further management. ADMITTING DIAGNOSES: Includes: 1. Acute meningitis. 2. Human immunodeficiency virus status. 3. Amphetamine abuse. HOSPITAL STAY: ID doctor consulted. Pulmonary doctor consulted. The patient was started on empiric antibiotics. The patient was on airborne isolation. The patient was initially on the antiviral and antifungal medication. Serology was ordered. The CSF revealed lymphocyte dominant. Urine, blood, and sputum culture were all negative. Serology revealed a high RPR titer and positive for RPR, presumed neurosyphilis. The patient was started on penicillin to be continued for 14 days. The patient off amphotericin and acyclovir since the patient refused to take them. Risk of noncompliance with medication were explained to him by Infectious Disease specialist, however, the patient still declined the regimen. Sputum AFB x3 were ordered. He declined PPD. Supplemental oxygen and pulmonary toilet provided as needed. Serology was negative for Blastomyces and toxoplasmosis. Negative TB test, T-SPOT. Negative HCV. Hepatitis panel is negative. Negative for cryptococci. Noted elevated factor of histoplasma 1 to 16 with yeast. T-cell subsets revealed percentage of CD4 of 22. Pain management provided. DVT prophylaxis provided. The patient was working with PT and OT therapy. The patient was counseled on abstinence from street drugs. The patient was not on any HAART therapy, however, need to start as outpatient when discharged per ID. On 08/08/2016, nurse walked in the room with ID specialist and there was no patient, the patient eloped. Subsequently, the patient likely left with the IV catheter in place. No signs of intravenous catheter found in the room. Charge nurse and security nursing supervisor record press were notified. Nursing supervisor record press notified Infectious Disease nurse and report of missing patient with possible intravenous in place reported to police department. FINAL DIAGNOSES: Includes, 1. Acute meningitis, most likely neurosyphilis. 2. Human immunodeficiency virus status. 3. Amphetamine abuse. 4. Headache. Davis Pelletier D.O. I have been assigned to dictate discharge summary on this account and I was not involved in the patient's management. Clarissa pimenteljanes NAmbrocio DR: PK JOB#: [id number] CC:
== END 2016-08-08 13:00 | disposition left against medical advice (07) | DRG 894 ==
LOC: EDBD 02:30 → EMR 02:55 → 4E 03:20 → EDBEDREQ 03:34 → 4W 08-03 15:09 → 4E 08-05 12:14
PROC: 009U3ZX Drainage of Spinal Canal, Percutaneous Approach, Diagnostic (ICD-10-PCS; principal; 2016-07-31)
DX: A52.13 Late syphilitic meningitis (principal); B20 Human immunodeficiency virus [HIV] disease; D64.9 Anemia, unspecified; F15.10 Other stimulant abuse, uncomplicated; R51 Headache; Z91.14 Patient's other noncompliance with medication regimen
CPT/HCPCS: 36415; 62270; 70450; 71010; 80048; 80053; 80150; 80202; 80300; 81001; 81003; 82550; 82945; 83605; 83735; 84100; 84157; 84484; 85025; 85610; 85651; 85730; 86140; 86171; 86360; 86580; 86592; 86612; 86635; 86695; 86705; 86709; 86777; 86778; 86803; 87040; 87070; 87081; 87086; 87205; 87220; 87340; 87449; 87536; 89051; 93005; 97803; J0289; J2405; J2765